=== PATIENT | male | born 1935 | race Caucasian/White ===

== ENCOUNTER 2016-08-03 12:48 | Outpatient (CLI) | payer MEDICARE, BC | END 2016-08-03 12:49 | disposition home or self-care (01) | DX: I48.91 Unspecified atrial fibrillation (principal); Z79.891 Long term (current) use of opiate analgesic; Z79.01 Long term (current) use of anticoagulants ==

== ENCOUNTER 2016-08-31 12:39 | Outpatient (CLI) | payer MEDICARE, BC | END 2016-08-31 12:40 | disposition home or self-care (01) | DX: I48.91 Unspecified atrial fibrillation (principal); Z79.891 Long term (current) use of opiate analgesic; Z79.01 Long term (current) use of anticoagulants ==

== ENCOUNTER 2016-09-15 08:13 | Outpatient (CLI) | payer MEDICARE, BC | END 2016-09-15 08:14 | disposition home or self-care (01) | DX: I48.91 Unspecified atrial fibrillation (principal); Z79.891 Long term (current) use of opiate analgesic; Z79.01 Long term (current) use of anticoagulants ==

== ENCOUNTER 2016-10-12 09:00 | Outpatient (CLI) | payer MEDICARE, BC | END 2016-10-12 09:01 | disposition home or self-care (01) | DX: I48.91 Unspecified atrial fibrillation (principal); Z79.01 Long term (current) use of anticoagulants; Z79.891 Long term (current) use of opiate analgesic ==

== ENCOUNTER 2016-11-09 08:00 | Outpatient (CLI) | payer MEDICARE, BC | END 2016-11-09 08:01 | disposition home or self-care (01) | DX: I48.91 Unspecified atrial fibrillation (principal); Z79.891 Long term (current) use of opiate analgesic; Z79.01 Long term (current) use of anticoagulants ==

== ENCOUNTER 2016-12-07 13:51 | Outpatient (CLI) | payer MEDICARE, BC | END 2016-12-07 13:52 | disposition home or self-care (01) | LOC: LAB.F 13:51 | PROVIDERS: ATTEND Internal Medicine | DX: I48.91 Unspecified atrial fibrillation (principal); Z79.891 Long term (current) use of opiate analgesic; Z79.01 Long term (current) use of anticoagulants | CPT/HCPCS: 85610 ==

== ENCOUNTER 2016-12-28 13:27 | Outpatient (CLI) | payer MEDICARE, BC | END 2016-12-28 13:28 | disposition home or self-care (01) | LOC: LAB.F 13:27 | PROVIDERS: ATTEND Internal Medicine | DX: I48.91 Unspecified atrial fibrillation (principal); Z79.891 Long term (current) use of opiate analgesic; Z79.01 Long term (current) use of anticoagulants | CPT/HCPCS: 85610 ==

== ENCOUNTER 2017-01-25 13:19 | Outpatient (CLI) | payer MEDICARE, BC | END 2017-01-25 13:20 | disposition home or self-care (01) | LOC: LAB.F 13:19 | PROVIDERS: ATTEND Internal Medicine | DX: I48.91 Unspecified atrial fibrillation (principal) | CPT/HCPCS: 85610 ==

== ENCOUNTER 2017-02-22 13:11 | Outpatient (CLI) | payer MEDICARE, BC | END 2017-02-22 13:12 | disposition home or self-care (01) | LOC: LAB.F 13:11 | PROVIDERS: ATTEND Internal Medicine | DX: I48.91 Unspecified atrial fibrillation (principal); Z79.891 Long term (current) use of opiate analgesic; Z79.01 Long term (current) use of anticoagulants | CPT/HCPCS: 85610 ==

== ENCOUNTER 2017-03-22 13:10 | Outpatient (CLI) | payer MEDICARE, BC | END 2017-03-22 13:11 | disposition home or self-care (01) | LOC: LAB.F 13:10 | PROVIDERS: ATTEND Internal Medicine | DX: I48.91 Unspecified atrial fibrillation (principal); Z79.891 Long term (current) use of opiate analgesic; Z79.01 Long term (current) use of anticoagulants | CPT/HCPCS: 85610 ==

== ENCOUNTER 2017-04-19 10:59 | Outpatient (CLI) | payer MEDICARE, BC | END 2017-04-19 11:00 | disposition home or self-care (01) | LOC: LAB.F 10:59 | PROVIDERS: ATTEND Internal Medicine | DX: I48.91 Unspecified atrial fibrillation (principal); Z79.891 Long term (current) use of opiate analgesic; Z79.01 Long term (current) use of anticoagulants | CPT/HCPCS: 85610 ==

== ENCOUNTER 2017-06-15 15:37 | Outpatient (CLI) | payer MEDICARE, BC | END 2017-06-15 15:38 | disposition home or self-care (01) | LOC: LAB.F 15:37 | PROVIDERS: ATTEND Internal Medicine | DX: I48.91 Unspecified atrial fibrillation (principal); Z79.891 Long term (current) use of opiate analgesic; Z79.01 Long term (current) use of anticoagulants | CPT/HCPCS: 85610 ==

== ENCOUNTER 2017-07-20 13:02 | Outpatient (CLI) | payer MEDICARE, BC | END 2017-07-20 13:03 | disposition home or self-care (01) | LOC: LAB.F 13:02 | PROVIDERS: ATTEND Internal Medicine | DX: I48.91 Unspecified atrial fibrillation (principal); Z79.891 Long term (current) use of opiate analgesic; Z79.01 Long term (current) use of anticoagulants | CPT/HCPCS: 85610 ==

== ENCOUNTER 2017-08-22 12:38 | Outpatient (CLI) | payer MEDICARE, BC | END 2017-08-22 12:39 | disposition home or self-care (01) | LOC: LAB.F 12:38 | PROVIDERS: ATTEND Internal Medicine | DX: I48.91 Unspecified atrial fibrillation (principal); Z79.891 Long term (current) use of opiate analgesic; Z79.01 Long term (current) use of anticoagulants | CPT/HCPCS: 85610 ==

== ENCOUNTER 2017-09-19 09:04 | Outpatient (CLI) | payer MEDICARE, BC | END 2017-09-19 09:05 | disposition home or self-care (01) | LOC: LAB.F 09:04 | PROVIDERS: ATTEND Internal Medicine | DX: I48.91 Unspecified atrial fibrillation (principal); Z79.891 Long term (current) use of opiate analgesic; Z79.01 Long term (current) use of anticoagulants | CPT/HCPCS: 85610 ==

== ENCOUNTER 2017-10-17 08:00 | Outpatient (CLI) | payer MEDICARE, BC | END 2017-10-17 08:01 | disposition home or self-care (01) | LOC: LAB.F 08:00 | DX: I48.2 Chronic atrial fibrillation (principal) | CPT/HCPCS: 85610 ==

== ENCOUNTER 2017-11-14 13:23 | Outpatient (CLI) | payer MEDICARE, BC | END 2017-11-14 13:24 | disposition home or self-care (01) | LOC: LAB.F 13:23 | PROVIDERS: ATTEND Nurse Practitioner Family | DX: Z51.81 Encounter for therapeutic drug level monitoring (principal); Z79.01 Long term (current) use of anticoagulants | CPT/HCPCS: 85610 ==

== ENCOUNTER 2017-12-15 09:54 | Outpatient (CLI) | payer MEDICARE, BC | END 2017-12-15 09:55 | disposition home or self-care (01) | LOC: LAB.F 09:54 | PROVIDERS: ATTEND Nurse Practitioner Family | DX: Z79.01 Long term (current) use of anticoagulants (principal) | CPT/HCPCS: 85610 ==

== ENCOUNTER 2018-01-12 12:42 | Outpatient (CLI) | payer MEDICARE, BC | END 2018-01-12 12:43 | disposition home or self-care (01) | LOC: LAB.F 12:42 | PROVIDERS: ATTEND Nurse Practitioner Family | DX: Z51.81 Encounter for therapeutic drug level monitoring (principal); Z79.01 Long term (current) use of anticoagulants | CPT/HCPCS: 85610 ==

== ENCOUNTER 2018-01-26 11:08 | Outpatient (CLI) | payer MEDICARE, BC | END 2018-01-26 11:09 | disposition home or self-care (01) | LOC: LAB.F 11:08 | PROVIDERS: ATTEND Nurse Practitioner Family | DX: Z51.81 Encounter for therapeutic drug level monitoring (principal); Z79.01 Long term (current) use of anticoagulants | CPT/HCPCS: 85610 ==

== ENCOUNTER 2018-02-20 13:45 | Outpatient (CLI) | payer MEDICARE, BC | END 2018-02-20 13:46 | disposition home or self-care (01) | LOC: LAB.F 13:45 | PROVIDERS: ATTEND Nurse Practitioner Family | DX: Z51.81 Encounter for therapeutic drug level monitoring (principal); Z79.01 Long term (current) use of anticoagulants | CPT/HCPCS: 85610 ==

== ENCOUNTER 2018-03-14 10:09 | Outpatient (CLI) | payer MEDICARE, BC | END 2018-03-14 10:10 | disposition home or self-care (01) | LOC: LAB.F 10:09 | PROVIDERS: ATTEND Nurse Practitioner Family | DX: Z51.81 Encounter for therapeutic drug level monitoring (principal); Z79.01 Long term (current) use of anticoagulants | CPT/HCPCS: 85610 ==

== ENCOUNTER 2018-04-12 14:04 | Outpatient (CLI) | payer MEDICARE, BC | END 2018-04-12 14:05 | disposition home or self-care (01) | LOC: LAB.F 14:04 | PROVIDERS: ATTEND Nurse Practitioner Family | DX: Z51.81 Encounter for therapeutic drug level monitoring (principal); Z79.01 Long term (current) use of anticoagulants | CPT/HCPCS: 85610 ==

== ENCOUNTER 2018-04-13 15:47 | Emergency (ER) | payer MEDICARE, BC ==
--- NOTE | 2018-04-13 16:42 | XRAY Report ---
Reason: pacer zapped him Procedure Date: 04/13/2018 Accession Number: [id number] / [id number] Procedure: XR - Chest 2 View X-Ray CPT Code: 40480 FULL RESULT: EXAM: CHEST RADIOGRAPHY EXAM DATE: 04/13/2018 04:15 PM. CLINICAL HISTORY: Pacer discharge. COMPARISON: None. TECHNIQUE: 2 views. FINDINGS: Lungs/Pleura: Patchy increased density in left lung base, atelectasis versus infiltrate. No consolidation, effusion, or pneumothorax. Mediastinum: Mild cardiomegaly. Upper lobe vessels not distended. Other: Indwelling defibrillator on the left with intact leads. Degenerative changes. IMPRESSION: Left basilar atelectasis versus infiltrate. RADIA
[2018-04-13 16:45] LABS: BASOPHILS # (AUTO) 0.1 10^3/uL (0.0-0.1); BASOPHILS % (AUTO) 1.3 %; EOSINOPHILS # (AUTO) 0.3 10^3/uL (0.0-0.7); EOSINOPHILS % (AUTO) 7.5 %; HGB - HEMOGLOBIN 14.2 g/dL (14.0-18.0); LYMPHOCYTES # (AUTO) 0.9 10^3/uL (1.5-3.5); LYMPHOCYTES % (AUTO) 19.5 %; MEAN CORPUSCULAR HEMOGLOBIN 33.6 pg (27.0-31.0); MEAN CORPUSCULAR HGB CONC 34.4 g/dL (32.0-36.0); MEAN CORPUSCULAR VOLUME 97.7 fL (80.0-94.0); MEAN PLATELET VOLUME 7.9 fL (7.4-11.4); MONOCYTES # (AUTO) 0.6 10^3/uL (0.0-1.0); NEUTROPHILS # (AUTO) 2.7 10^3/uL (1.5-6.6); NEUTROPHILS % (AUTO) 58.7 %; PLT - PLATELET COUNT 162 10^3/uL (130-450); RED BLOOD COUNT 4.23 10^6/uL (4.70-6.10); RED CELL DISTRIBUTION WIDTH 12.5 % (12.0-15.0); WHITE BLOOD COUNT 4.6 x10^3/uL (4.8-10.8)
--- NOTE | 2018-04-13 16:51 | ED Physician Documentation ---
PD HPI CHEST PAIN - Stated complaint Stated Complaint: DEFIB ALARM - Chief complaint Chief Complaint: Cardiac - History obtained from History obtained from: Patient - History of Present Illness Timing - onset: How many hours ago (1), Today Timing - onset during: Light activity (he was just walking at home and felt lightheaded briefly then his AICD fired. He felt lightheaded briefly just after and sat down. No LOC. He had some soreness in his chest. He improved to normal enroute to ER and feels okay here.) Timing - details: Abrupt onset (He says he had felt well earlier in the day without any dyspnea, lightheadedness, chest pain or other abnormalities. He did not have any feeling of palpitations. He was just walking in the kitchen when he abruptly felt some lightheadedness and then his AICD fired. He did not have any loss of consciousness. He subsequently felt back to normal several minutes later.), Now resolved Quality: Aching (after the AICD fired, but is feeling okay now.) Location: Left chest Improved by: Rest Worsened by: No: Exertion, Inspiration Associated symptoms: No: Shortness of air, Diaphoresis Similar symptoms before: Diagnosis (has had AICD fire couple of times in the past, last one about 8 years ago.) Recently seen: Surgery (he had routine replacement of AICD for battery replacement 10 days ago and was healing well. No signs of infection.) Review of Systems Constitutional: denies: Fever, Chills, Myalgias Nose: denies: Rhinorrhea / runny nose, Congestion Throat: denies: Sore throat Cardiac: reports: Chest pain / pressure (only after the AICD fired. He felt okay prior.). denies: Palpitations, Pedal edema, Calf pain Respiratory: denies: Dyspnea, Cough, Wheezing GI: denies: Abdominal Pain, Nausea, Vomiting, Diarrhea Musculoskeletal: denies: Extremity swelling Neurologic: denies: Focal weakness, Numbness, Near syncope, Confused, Altered mental status, Headache PD PAST MEDICAL HISTORY - Past Medical History Cardiovascular: Coronary artery disease, Atrial fibrillation - Past Surgical History Cardiovascular: Pacemaker, AICD - Present Medications Home Medications: Ambulatory Orders Medication Instructions Recorded Confirmed Digoxin 01/30/14 01/30/14 Losartan Potassium 01/30/14 01/30/14 Magnesium Oxide [Mag Ox] 01/30/14 01/30/14 Metoprolol Tartrate 01/30/14 01/30/14 Pantoprazole Sodium 01/30/14 01/30/14 Sotalol [Betapace] 01/30/14 01/30/14 Spironolactone 01/30/14 01/30/14 Warfarin [Coumadin] 01/30/14 01/30/14 - Allergies Allergies/Adverse Reactions: Allergies Allergy/AdvReac Type Severity Reaction Status Date / Time No Known Drug Allergies Allergy Verified 04/13/18 16:01 - Social History Does the pt smoke?: No Smoking Status: Never smoker Does the pt drink ETOH?: Yes Does the pt have substance abuse?: No PD ED PE NORMAL - Vitals Vital signs reviewed: Yes - General General: Alert and oriented X 3, No acute distress, Well developed/nourished - HEENT HEENT: Pharynx benign - Neck Neck: Supple, no meningeal sign, No adenopathy - Cardiac Cardiac: RRR, No murmur, Strong equal pulses, Other (chest wall with healing wound left upper chest. No signs of infection. ) - Respiratory Respiratory: Clear bilaterally - Abdomen Abdomen: Normal bowel sounds, Soft, Non tender - Back Back: No CVA TTP - Derm Derm: Normal color, Warm and dry - Extremities Extremities: No deformity, No tenderness to palpate, Normal ROM s pain, No edema, No calf tenderness / cord - Neuro Neuro: Alert and oriented X 3, No motor deficit, Normal speech - Psych Psych: Normal mood, Normal affect Results - Vitals Vitals: Vital Signs - 24 hr 04/13/18 04/13/18 15:50 18:01 Temperature 36.2 C L Heart Rate 67 70 Respiratory 20 16 Rate Blood Pressure 113/95 H 135/78 H O2 Saturation 96 98 Oxygen O2 Source Room air - EKG (time done) 15:57 Rate: Rate (enter#) (70) Rhythm: Paced [place]: Normal Intervals: No: Wide QRS Ischemia: Normal ST segments, Non specific changes. No: ST elevation c/w ischemia - Labs Labs: Laboratory Tests 04/13/18 04/13/18 04/13/18 16:37 16:37 16:37 WBC 4.6 L RBC 4.23 L Hgb 14.2 Hct 41.3 L MCV 97.7 H MCH 33.6 H MCHC 34.4 RDW 12.5 Plt Count 162 MPV 7.9 Neut # (Auto) 2.7 Lymph # (Auto) 0.9 L [place] # (Auto) 0.6 Eos # (Auto) 0.3 Baso # (Auto) 0.1 Absolute Nucleated RBC 0.00 Nucleated RBC % 0.1 Sodium 136 Potassium 4.3 Chloride 103 Carbon Dioxide 28 Anion Gap 5.0 L BUN 20 Creatinine 0.9 Estimated GFR (MDRD) 81 L Glucose 134 H Calcium 9.0 Total Bilirubin 1.1 H AST 23 ALT 26 Alkaline Phosphatase 52 Troponin I < 0.04 Total Protein 7.3 Albumin 4.0 Globulin 3.3 Albumin/Globulin Ratio 1.2 Lipase 40 Last Dose Date Last Dose Time Digoxin 04/13/18 16:37 WBC RBC Hgb Hct MCV MCH MCHC RDW Plt Count MPV Neut # (Auto) Lymph # (Auto) [place] # (Auto) Eos # (Auto) Baso # (Auto) Absolute Nucleated RBC Nucleated RBC % Sodium Potassium Chloride Carbon Dioxide Anion Gap BUN Creatinine Estimated GFR (MDRD) Glucose Calcium Total Bilirubin AST ALT Alkaline Phosphatase Troponin I Total Protein Albumin Globulin Albumin/Globulin Ratio Lipase Last Dose Date UNK Last Dose Time UNK Digoxin 0.6 PD MEDICAL DECISION MAKING - ED course Complexity details: considered differential, d/w patient, d/w sales support consultant (Dr. Self, personnel arbitrator for Dr. Cohen, who said okay for patient to go home, if feeling back to normal. ) - Sepsis Event Vital Signs: Vital Signs - 24 hr 04/13/18 04/13/18 15:50 18:01 Temperature 36.2 C L Heart Rate 67 70 Respiratory 20 16 Rate Blood Pressure 113/95 H 135/78 H O2 Saturation 96 98 Oxygen O2 Source Room air Departure - Departure Disposition: Home, Self Care Clinical Impression: Defibrillator discharge Condition: Stable Record reviewed to determine appropriate education?: Yes Follow-Up: Rika Cohen MD [Physician No Access] - Comments: Continue usual medications. I talked with Dr. Self who is on-call for cardiology. He said it is reasonable for you to go home and do normal activity. Contact Dr. Stubbs's office next week. If you have a repeat discharge of the AICD, then return to the ER. Discharge Date/Time: 04/13/18 18:02
[2018-04-13 16:57] LABS: ALBUMIN/GLOBULIN RATIO 1.2 (1.0-2.2); BILIRUBIN,TOTAL 1.1 mg/dL (0.2-1.0); CREATININE 0.9 mg/dL (0.6-1.2); TOTAL PROTEIN 7.3 g/dL (6.7-8.2)
[2018-04-13 17:20] LABS: DIGOXIN 0.6 ng/mL
[2018-04-13 18:02] VITALS: BP 135/78
== END 2018-04-13 18:02 | disposition home or self-care (01) ==
LOC: ED 15:47
DX: T82.198A Other mechanical complication of other cardiac electronic device, initial encounter (principal); I48.91 Unspecified atrial fibrillation; I48.92 Unspecified atrial flutter; I25.10 Atherosclerotic heart disease of native coronary artery without angina pectoris; Z79.01 Long term (current) use of anticoagulants
CPT/HCPCS: 36415; 71046; 80053; 80162; 83690; 84484; 85025; 93005; 99283; 99284

== ENCOUNTER 2018-05-03 14:15 | Outpatient (CLI) | payer MEDICARE, BC | END 2018-05-03 14:16 | disposition home or self-care (01) | LOC: LAB.F 14:15 | PROVIDERS: ATTEND Family Medicine Sports Medicine | DX: Z51.81 Encounter for therapeutic drug level monitoring (principal); Z79.01 Long term (current) use of anticoagulants | CPT/HCPCS: 85610 ==

== ENCOUNTER 2018-05-09 13:05 | Outpatient (CLI) | payer MEDICARE, BC | END 2018-05-09 13:06 | disposition home or self-care (01) | LOC: LAB.F 13:05 | PROVIDERS: ATTEND Nurse Practitioner Family | DX: Z51.81 Encounter for therapeutic drug level monitoring (principal); Z79.01 Long term (current) use of anticoagulants | CPT/HCPCS: 85610 ==

== ENCOUNTER 2018-06-08 14:50 | Outpatient (CLI) | payer MEDICARE, BC | END 2018-06-08 14:51 | disposition home or self-care (01) | LOC: LAB.F 14:50 | PROVIDERS: ATTEND Nurse Practitioner Family | DX: Z51.81 Encounter for therapeutic drug level monitoring (principal); Z79.01 Long term (current) use of anticoagulants | CPT/HCPCS: 85610 ==

== ENCOUNTER 2018-06-27 15:08 | Outpatient (CLI) | payer MEDICARE, BC | END 2018-06-27 15:09 | disposition home or self-care (01) | LOC: LAB.F 15:08 | PROVIDERS: ATTEND Nurse Practitioner Family | DX: Z51.81 Encounter for therapeutic drug level monitoring (principal); Z79.01 Long term (current) use of anticoagulants | CPT/HCPCS: 85610 ==

== ENCOUNTER 2018-07-25 14:14 | Outpatient (CLI) | payer MEDICARE, BC | END 2018-07-25 14:15 | disposition home or self-care (01) | LOC: LAB.F 14:14 | PROVIDERS: ATTEND Nurse Practitioner Family | DX: Z51.81 Encounter for therapeutic drug level monitoring (principal); Z79.01 Long term (current) use of anticoagulants | CPT/HCPCS: 85610 ==

== ENCOUNTER 2018-08-22 11:09 | Outpatient (CLI) | payer MEDICARE, BC | END 2018-08-22 11:10 | disposition home or self-care (01) | LOC: LAB.F 11:09 | PROVIDERS: ATTEND Nurse Practitioner Family | DX: Z51.81 Encounter for therapeutic drug level monitoring (principal); Z79.01 Long term (current) use of anticoagulants | CPT/HCPCS: 85610 ==

== ENCOUNTER 2018-09-05 09:14 | Outpatient (CLI) | payer MEDICARE, BC | END 2018-09-05 09:15 | disposition home or self-care (01) | LOC: LAB.F 09:14 | PROVIDERS: ATTEND Nurse Practitioner Family | DX: Z51.81 Encounter for therapeutic drug level monitoring (principal); Z79.01 Long term (current) use of anticoagulants | CPT/HCPCS: 85610 ==

== ENCOUNTER 2018-10-04 13:13 | Outpatient (CLI) | payer MEDICARE, BC | END 2018-10-04 13:14 | disposition home or self-care (01) | LOC: LAB.F 13:13 | PROVIDERS: ATTEND Nurse Practitioner Family | DX: Z51.81 Encounter for therapeutic drug level monitoring (principal); Z79.01 Long term (current) use of anticoagulants | CPT/HCPCS: 85610 ==

== ENCOUNTER 2018-10-25 13:38 | Outpatient (CLI) | payer MEDICARE, BC | END 2018-10-25 13:39 | disposition home or self-care (01) | LOC: LAB.F 13:38 | PROVIDERS: ATTEND Family Medicine Sports Medicine | DX: Z51.81 Encounter for therapeutic drug level monitoring (principal); Z79.01 Long term (current) use of anticoagulants | CPT/HCPCS: 85610 ==

== ENCOUNTER 2018-11-08 13:25 | Outpatient (CLI) | payer MEDICARE, BC | END 2018-11-08 13:26 | disposition home or self-care (01) | LOC: LAB.F 13:25 | PROVIDERS: ATTEND Family Medicine Sports Medicine | DX: Z51.81 Encounter for therapeutic drug level monitoring (principal); Z79.01 Long term (current) use of anticoagulants | CPT/HCPCS: 85610 ==

== ENCOUNTER 2018-11-18 20:07 | Outpatient (CLI) | payer MEDICARE, BC | END 2018-11-18 20:08 | disposition short-term general hospital (02) | LOC: EMS 20:07 | PROVIDERS: ATTEND Surgery | DX: R42 Dizziness and giddiness (principal); Z95.810 Presence of automatic (implantable) cardiac defibrillator | CPT/HCPCS: A0425; A0427 ==

== ENCOUNTER 2018-11-22 12:34 | Outpatient (CLI) | payer MEDICARE, BC | END 2018-11-22 12:35 | disposition home or self-care (01) | LOC: LAB.F 12:34 | PROVIDERS: ATTEND Family Medicine Sports Medicine | DX: Z51.81 Encounter for therapeutic drug level monitoring (principal); Z79.01 Long term (current) use of anticoagulants | CPT/HCPCS: 85610 ==

== ENCOUNTER 2018-11-29 15:11 | Outpatient (CLI) | payer MEDICARE, BC | END 2018-11-29 15:12 | disposition home or self-care (01) | LOC: LAB.F 15:11 | PROVIDERS: ATTEND Family Medicine Sports Medicine | DX: Z51.81 Encounter for therapeutic drug level monitoring (principal); Z79.01 Long term (current) use of anticoagulants | CPT/HCPCS: 85610 ==

== ENCOUNTER 2018-12-11 15:25 | Outpatient (CLI) | payer MEDICARE, BC | END 2018-12-11 15:26 | disposition home or self-care (01) | LOC: LAB.F 15:25 | PROVIDERS: ATTEND Family Medicine Sports Medicine | DX: Z51.81 Encounter for therapeutic drug level monitoring (principal); Z79.01 Long term (current) use of anticoagulants | CPT/HCPCS: 36415; 85610 ==

== ENCOUNTER 2018-12-13 10:03 | Outpatient (CLI) | payer MEDICARE, BC | END 2018-12-13 10:04 | disposition home or self-care (01) | LOC: LAB.F 10:03 | PROVIDERS: ATTEND Family Medicine Sports Medicine | DX: Z51.81 Encounter for therapeutic drug level monitoring (principal); Z79.01 Long term (current) use of anticoagulants | CPT/HCPCS: 85610 ==

== ENCOUNTER 2018-12-27 14:27 | Outpatient (CLI) | payer MEDICARE, BC | END 2018-12-27 14:28 | disposition home or self-care (01) | LOC: LAB.F 14:27 | PROVIDERS: ATTEND Family Medicine Sports Medicine | DX: Z51.81 Encounter for therapeutic drug level monitoring (principal); Z79.01 Long term (current) use of anticoagulants | CPT/HCPCS: 85610 ==

== ENCOUNTER 2019-01-01 14:14 | Outpatient (CLI) | payer MEDICARE, BC | END 2019-01-01 14:15 | disposition home or self-care (01) | LOC: LAB.F 14:14 | PROVIDERS: ATTEND Family Medicine Sports Medicine | DX: Z51.81 Encounter for therapeutic drug level monitoring (principal); Z79.01 Long term (current) use of anticoagulants | CPT/HCPCS: 85610 ==

== ENCOUNTER 2019-01-08 10:08 | Outpatient (CLI) | payer MEDICARE, BC | END 2019-01-08 10:09 | disposition home or self-care (01) | LOC: LAB.F 10:08 | PROVIDERS: ATTEND Family Medicine Sports Medicine | DX: Z51.81 Encounter for therapeutic drug level monitoring (principal); Z79.01 Long term (current) use of anticoagulants | CPT/HCPCS: 85610 ==

== ENCOUNTER 2019-01-22 09:59 | Outpatient (CLI) | payer MEDICARE, BC | END 2019-01-22 10:00 | disposition home or self-care (01) | LOC: LAB.S 09:59 | PROVIDERS: ATTEND Family Medicine Sports Medicine | DX: Z51.81 Encounter for therapeutic drug level monitoring (principal); Z79.01 Long term (current) use of anticoagulants | CPT/HCPCS: 85610 ==

== ENCOUNTER 2019-02-12 12:52 | Outpatient (CLI) | payer MEDICARE, BC | END 2019-02-12 12:53 | disposition home or self-care (01) | LOC: LAB.S 12:52 | PROVIDERS: ATTEND Family Medicine Sports Medicine | DX: Z51.81 Encounter for therapeutic drug level monitoring (principal); Z79.01 Long term (current) use of anticoagulants | CPT/HCPCS: 85610 ==

== ENCOUNTER 2019-02-21 10:36 | Outpatient (CLI) | payer MEDICARE, BC | END 2019-02-21 10:37 | disposition home or self-care (01) | LOC: LAB.S 10:36 | PROVIDERS: ATTEND Family Medicine Sports Medicine | DX: Z51.81 Encounter for therapeutic drug level monitoring (principal); Z79.01 Long term (current) use of anticoagulants | CPT/HCPCS: 85610 ==

== ENCOUNTER 2019-03-07 10:09 | Outpatient (CLI) | payer MEDICARE, BC | END 2019-03-07 10:10 | disposition home or self-care (01) | LOC: LAB.S 10:09 | PROVIDERS: ATTEND Family Medicine Sports Medicine | DX: Z51.81 Encounter for therapeutic drug level monitoring (principal); Z79.01 Long term (current) use of anticoagulants | CPT/HCPCS: 85610 ==

== ENCOUNTER 2019-03-21 10:27 | Outpatient (CLI) | payer MEDICARE, BC | END 2019-03-21 10:28 | disposition home or self-care (01) | LOC: LAB.S 10:27 | PROVIDERS: ATTEND Family Medicine Sports Medicine | DX: Z51.81 Encounter for therapeutic drug level monitoring (principal); Z79.01 Long term (current) use of anticoagulants | CPT/HCPCS: 85610 ==

== ENCOUNTER 2019-04-04 14:45 | Outpatient (CLI) | payer MEDICARE, BC | END 2019-04-04 14:46 | disposition home or self-care (01) | LOC: LAB.S 14:45 | PROVIDERS: ATTEND Family Medicine Sports Medicine | DX: Z51.81 Encounter for therapeutic drug level monitoring (principal); Z79.01 Long term (current) use of anticoagulants | CPT/HCPCS: 85610 ==

== ENCOUNTER 2019-04-18 11:37 | Outpatient (CLI) | payer MEDICARE, BC | END 2019-04-18 11:38 | disposition home or self-care (01) | LOC: LAB.S 11:37 | PROVIDERS: ATTEND Family Medicine Sports Medicine | DX: Z51.81 Encounter for therapeutic drug level monitoring (principal); Z79.01 Long term (current) use of anticoagulants | CPT/HCPCS: 85610 ==

== ENCOUNTER 2019-05-23 12:12 | Outpatient (CLI) | payer MEDICARE, BC | END 2019-05-23 23:59 | disposition home or self-care (01) | LOC: LAB.S 12:12 | PROVIDERS: ATTEND Family Medicine Sports Medicine | DX: Z51.81 Encounter for therapeutic drug level monitoring (principal); Z79.01 Long term (current) use of anticoagulants | CPT/HCPCS: 85610 ==

== ENCOUNTER 2019-06-21 15:31 | Outpatient (CLI) | payer MEDICARE, BC | END 2019-06-21 15:32 | disposition home or self-care (01) | LOC: LAB.S 15:31 | PROVIDERS: ATTEND Family Medicine | DX: I48.20 Chronic atrial fibrillation, unspecified (principal) | CPT/HCPCS: 85610 ==

== ENCOUNTER 2019-07-08 12:42 | Outpatient (CLI) | payer MEDICARE, BC | END 2019-07-08 12:43 | disposition home or self-care (01) | LOC: LAB.S 12:42 | PROVIDERS: ATTEND Family Medicine | DX: I48.20 Chronic atrial fibrillation, unspecified (principal) | CPT/HCPCS: 85610 ==

== ENCOUNTER 2019-07-29 13:31 | Outpatient (CLI) | payer MEDICARE, BC | END 2019-07-29 13:32 | disposition home or self-care (01) | LOC: LAB.S 13:31 | PROVIDERS: ATTEND Family Medicine | DX: I48.20 Chronic atrial fibrillation, unspecified (principal) | CPT/HCPCS: 85610 ==

== ENCOUNTER 2019-08-20 13:24 | Outpatient (CLI) | payer MEDICARE, BC | END 2019-08-20 13:25 | disposition home or self-care (01) | LOC: LAB.S 13:24 | PROVIDERS: ATTEND Family Medicine | DX: I48.20 Chronic atrial fibrillation, unspecified (principal) | CPT/HCPCS: 85610 ==

== ENCOUNTER 2019-08-29 15:13 | Outpatient (CLI) | payer MEDICARE, BC | END 2019-08-29 15:14 | disposition home or self-care (01) | LOC: LAB.S 15:13 | PROVIDERS: ATTEND Family Medicine | DX: I48.20 Chronic atrial fibrillation, unspecified (principal) | CPT/HCPCS: 85610 ==

== ENCOUNTER 2019-09-09 11:36 | Outpatient (CLI) | payer MEDICARE, BC | END 2019-09-09 11:37 | disposition home or self-care (01) | LOC: LAB.S 11:36 | PROVIDERS: ATTEND Family Medicine | DX: I48.20 Chronic atrial fibrillation, unspecified (principal) | CPT/HCPCS: 85610 ==

== ENCOUNTER 2019-09-23 13:28 | Outpatient (CLI) | payer MEDICARE, BC | END 2019-09-23 13:29 | disposition home or self-care (01) | LOC: LAB.S 13:28 | PROVIDERS: ATTEND Family Medicine | DX: I48.20 Chronic atrial fibrillation, unspecified (principal) | CPT/HCPCS: 85610 ==

== ENCOUNTER 2019-10-07 13:11 | Outpatient (CLI) | payer MEDICARE, BC | END 2019-10-07 13:12 | disposition home or self-care (01) | LOC: LAB.S 13:11 | PROVIDERS: ATTEND Family Medicine | DX: I48.20 Chronic atrial fibrillation, unspecified (principal) | CPT/HCPCS: 85610 ==

== ENCOUNTER 2019-10-08 08:00 | Outpatient (CLI) | payer MEDICARE, BC ==
[2019-10-08 17:25] LABS: ALBUMIN 3.9 g/dL (3.2-5.5); BILIRUBIN,DIRECT 0.2 mg/dL (0.1-0.5); BILIRUBIN,TOTAL 1.2 mg/dL (0.2-1.0); TOTAL PROTEIN 6.9 g/dL (6.7-8.2)
== END 2019-10-08 23:59 | disposition home or self-care (01) ==
LOC: LAB.S 08:00
PROVIDERS: ATTEND Internal Medicine Cardiovascular Disease
DX: Z79.899 Other long term (current) drug therapy (principal)
CPT/HCPCS: 36415; 80076

== ENCOUNTER 2019-10-16 14:38 | Outpatient (CLI) | payer MEDICARE, BC | END 2019-10-16 14:39 | disposition home or self-care (01) | LOC: LAB 14:38 | PROVIDERS: ATTEND Internal Medicine Cardiovascular Disease | DX: Z79.899 Other long term (current) drug therapy (principal); E03.2 Hypothyroidism due to medicaments and other exogenous substances | CPT/HCPCS: 36415; 84443 ==

== ENCOUNTER 2019-11-04 10:56 | Outpatient (CLI) | payer MEDICARE, BC | END 2019-11-04 10:57 | disposition home or self-care (01) | LOC: LAB 10:56 | PROVIDERS: ATTEND Family Medicine | DX: I48.20 Chronic atrial fibrillation, unspecified (principal) | CPT/HCPCS: 85610 ==

== ENCOUNTER 2019-11-05 11:58 | Outpatient (CLI) | payer MEDICARE, BC | END 2019-11-05 11:59 | disposition home or self-care (01) | LOC: LAB 11:58 | PROVIDERS: ATTEND Family Medicine | DX: I48.20 Chronic atrial fibrillation, unspecified (principal) | CPT/HCPCS: 85610 ==

== ENCOUNTER 2019-11-11 12:10 | Outpatient (CLI) | payer MEDICARE, BC | END 2019-11-11 12:11 | disposition home or self-care (01) | LOC: LAB 12:10 | PROVIDERS: ATTEND Family Medicine | DX: I48.20 Chronic atrial fibrillation, unspecified (principal) | CPT/HCPCS: 85610 ==

== ENCOUNTER 2019-11-18 10:07 | Outpatient (CLI) | payer MEDICARE, BC | END 2019-11-18 10:08 | disposition home or self-care (01) | LOC: LAB 10:07 | PROVIDERS: ATTEND Family Medicine | DX: I48.20 Chronic atrial fibrillation, unspecified (principal) | CPT/HCPCS: 85610 ==

== ENCOUNTER 2019-11-25 10:39 | Outpatient (CLI) | payer MEDICARE, BC | END 2019-11-25 10:40 | disposition home or self-care (01) | LOC: LAB 10:39 | PROVIDERS: ATTEND Family Medicine | DX: I48.20 Chronic atrial fibrillation, unspecified (principal) | CPT/HCPCS: 85610 ==

== ENCOUNTER 2019-12-02 11:36 | Outpatient (CLI) | payer MEDICARE, BC | END 2019-12-02 11:37 | disposition home or self-care (01) | LOC: LAB 11:36 | PROVIDERS: ATTEND Family Medicine | DX: I48.20 Chronic atrial fibrillation, unspecified (principal) | CPT/HCPCS: 85610 ==

== ENCOUNTER 2019-12-11 12:42 | Outpatient (CLI) | payer MEDICARE, BC | END 2019-12-11 12:43 | disposition home or self-care (01) | LOC: LAB 12:42 | PROVIDERS: ATTEND Family Medicine | DX: I48.20 Chronic atrial fibrillation, unspecified (principal) | CPT/HCPCS: 85610 ==

== ENCOUNTER 2019-12-31 11:26 | Outpatient (CLI) | payer MEDICARE, BC | END 2019-12-31 11:27 | disposition home or self-care (01) | LOC: LAB 11:26 | PROVIDERS: ATTEND Family Medicine | DX: I48.20 Chronic atrial fibrillation, unspecified (principal) | CPT/HCPCS: 85610 ==

== ENCOUNTER 2020-01-15 13:10 | Outpatient (CLI) | payer MEDICARE, BC | END 2020-01-15 13:11 | disposition home or self-care (01) | LOC: LAB.S 13:10 | PROVIDERS: ATTEND Family Medicine | DX: I48.20 Chronic atrial fibrillation, unspecified (principal) | CPT/HCPCS: 85610 ==

== ENCOUNTER 2020-02-05 12:46 | Outpatient (CLI) | payer MEDICARE, BC | END 2020-02-05 12:47 | disposition home or self-care (01) | LOC: LAB.S 12:46 | PROVIDERS: ATTEND Family Medicine | DX: I48.20 Chronic atrial fibrillation, unspecified (principal) | CPT/HCPCS: 85610 ==

== ENCOUNTER 2020-03-04 11:32 | Outpatient (CLI) | payer MEDICARE, BC | END 2020-03-04 11:33 | disposition home or self-care (01) | LOC: LAB.S 11:32 | PROVIDERS: ATTEND Family Medicine | DX: I48.20 Chronic atrial fibrillation, unspecified (principal) | CPT/HCPCS: 85610 ==

== ENCOUNTER 2020-04-01 13:17 | Outpatient (CLI) | payer MEDICARE, BC | END 2020-04-01 13:18 | disposition home or self-care (01) | LOC: LAB.S 13:17 | PROVIDERS: ATTEND Family Medicine | DX: I48.20 Chronic atrial fibrillation, unspecified (principal) | CPT/HCPCS: 85610 ==

== ENCOUNTER 2020-04-23 11:48 | Outpatient (CLI) | payer MEDICARE, BC | END 2020-04-23 11:49 | disposition home or self-care (01) | LOC: LAB.S 11:48 | PROVIDERS: ATTEND Family Medicine | DX: I48.20 Chronic atrial fibrillation, unspecified (principal) | CPT/HCPCS: 85610 ==

== ENCOUNTER 2020-04-30 13:16 | Outpatient (CLI) | payer MEDICARE, BC | END 2020-04-30 13:17 | disposition home or self-care (01) | LOC: LAB.S 13:16 | PROVIDERS: ATTEND Family Medicine | DX: I48.20 Chronic atrial fibrillation, unspecified (principal) | CPT/HCPCS: 85610 ==

== ENCOUNTER 2020-05-07 13:54 | Outpatient (CLI) | payer MEDICARE, BC | END 2020-05-07 13:55 | disposition home or self-care (01) | LOC: LAB.S 13:54 | PROVIDERS: ATTEND Family Medicine | DX: I48.20 Chronic atrial fibrillation, unspecified (principal) | CPT/HCPCS: 85610 ==

== ENCOUNTER 2020-05-14 13:26 | Outpatient (CLI) | payer MEDICARE, BC | END 2020-05-14 13:27 | disposition home or self-care (01) | LOC: LAB.S 13:26 | PROVIDERS: ATTEND Family Medicine | DX: I48.20 Chronic atrial fibrillation, unspecified (principal) | CPT/HCPCS: 85610 ==

== ENCOUNTER 2020-05-21 14:00 | Outpatient (CLI) | payer MEDICARE, BC | END 2020-05-21 14:01 | disposition home or self-care (01) | LOC: LAB.S 14:00 | PROVIDERS: ATTEND Family Medicine | DX: I48.20 Chronic atrial fibrillation, unspecified (principal) | CPT/HCPCS: 85610 ==

== ENCOUNTER 2020-05-25 15:07 | Outpatient (CLI) | payer MEDICARE, BC | END 2020-05-25 15:08 | disposition home or self-care (01) | LOC: LAB.S 15:07 | PROVIDERS: ATTEND Family Medicine | DX: I48.20 Chronic atrial fibrillation, unspecified (principal) | CPT/HCPCS: 85610 ==

== ENCOUNTER 2020-06-04 14:58 | Outpatient (CLI) | payer MEDICARE, BC | END 2020-06-04 14:59 | disposition home or self-care (01) | LOC: LAB.S 14:58 | PROVIDERS: ATTEND Family Medicine | DX: I48.20 Chronic atrial fibrillation, unspecified (principal) | CPT/HCPCS: 85610 ==

== ENCOUNTER 2020-06-18 13:53 | Outpatient (CLI) | payer MEDICARE, BC | END 2020-06-18 13:54 | disposition home or self-care (01) | LOC: LAB.S 13:53 | PROVIDERS: ATTEND Family Medicine | DX: I48.20 Chronic atrial fibrillation, unspecified (principal) | CPT/HCPCS: 85610 ==

== ENCOUNTER 2020-06-25 14:17 | Outpatient (CLI) | payer MEDICARE, BC | END 2020-06-25 14:18 | disposition home or self-care (01) | LOC: LAB.S 14:17 | PROVIDERS: ATTEND Family Medicine | DX: I48.20 Chronic atrial fibrillation, unspecified (principal) | CPT/HCPCS: 85610 ==

== ENCOUNTER 2020-07-02 12:39 | Outpatient (CLI) | payer MEDICARE, BC | END 2020-07-02 12:40 | disposition home or self-care (01) | LOC: LAB.S 12:39 | PROVIDERS: ATTEND Family Medicine | DX: I48.20 Chronic atrial fibrillation, unspecified (principal) | CPT/HCPCS: 85610 ==

== ENCOUNTER 2020-07-08 12:27 | Outpatient (CLI) | payer MEDICARE, BC | END 2020-07-08 12:28 | disposition home or self-care (01) | LOC: LAB.S 12:27 | PROVIDERS: ATTEND Family Medicine | DX: I48.20 Chronic atrial fibrillation, unspecified (principal) | CPT/HCPCS: 85610 ==

== ENCOUNTER 2020-07-15 13:03 | Outpatient (CLI) | payer MEDICARE, BC | END 2020-07-15 13:04 | disposition home or self-care (01) | LOC: LAB.S 13:03 | PROVIDERS: ATTEND Family Medicine | DX: I48.20 Chronic atrial fibrillation, unspecified (principal) | CPT/HCPCS: 85610 ==

== ENCOUNTER 2020-07-23 14:00 | Outpatient (CLI) | payer MEDICARE, BC | END 2020-07-23 14:01 | disposition home or self-care (01) | LOC: LAB.S 14:00 | PROVIDERS: ATTEND Family Medicine | DX: I48.20 Chronic atrial fibrillation, unspecified (principal) | CPT/HCPCS: 85610 ==

== ENCOUNTER 2020-08-03 12:17 | Outpatient (CLI) | payer MEDICARE, BC | END 2020-08-03 12:18 | disposition home or self-care (01) | LOC: LAB.S 12:17 | PROVIDERS: ATTEND Family Medicine | DX: I48.20 Chronic atrial fibrillation, unspecified (principal) | CPT/HCPCS: 85610 ==

== ENCOUNTER 2020-08-10 12:57 | Outpatient (CLI) | payer MEDICARE, BC | END 2020-08-10 12:58 | disposition home or self-care (01) | LOC: LAB.S 12:57 | PROVIDERS: ATTEND Family Medicine | DX: I48.20 Chronic atrial fibrillation, unspecified (principal) | CPT/HCPCS: 85610 ==

== ENCOUNTER 2020-08-24 12:41 | Outpatient (CLI) | payer MEDICARE, BC | END 2020-08-24 12:42 | disposition home or self-care (01) | LOC: LAB.S 12:41 | PROVIDERS: ATTEND Family Medicine | DX: I48.20 Chronic atrial fibrillation, unspecified (principal) | CPT/HCPCS: 85610 ==

== ENCOUNTER 2020-09-07 11:07 | Outpatient (CLI) | payer MEDICARE, BC | END 2020-09-07 11:08 | disposition home or self-care (01) | LOC: LAB.S 11:07 | PROVIDERS: ATTEND Family Medicine | DX: I48.20 Chronic atrial fibrillation, unspecified (principal) | CPT/HCPCS: 85610 ==

== ENCOUNTER 2020-09-14 12:56 | Outpatient (CLI) | payer MEDICARE, BC | END 2020-09-14 12:57 | disposition home or self-care (01) | LOC: LAB.S 12:56 | PROVIDERS: ATTEND Family Medicine | DX: I48.20 Chronic atrial fibrillation, unspecified (principal) | CPT/HCPCS: 85610 ==

== ENCOUNTER 2020-09-21 13:04 | Outpatient (CLI) | payer MEDICARE, BC | END 2020-09-21 13:05 | disposition home or self-care (01) | LOC: LAB 13:04 | PROVIDERS: ATTEND Family Medicine | DX: I48.20 Chronic atrial fibrillation, unspecified (principal) | CPT/HCPCS: 85610 ==

== ENCOUNTER 2020-10-05 14:20 | Outpatient (CLI) | payer MEDICARE, BC | END 2020-10-05 14:21 | disposition home or self-care (01) | LOC: LAB.S 14:20 | PROVIDERS: ATTEND Family Medicine | DX: I48.20 Chronic atrial fibrillation, unspecified (principal) | CPT/HCPCS: 85610 ==

== ENCOUNTER 2020-10-27 12:57 | Outpatient (CLI) | payer MEDICARE, BC | END 2020-10-27 12:58 | disposition home or self-care (01) | LOC: LAB.S 12:57 | PROVIDERS: ATTEND Family Medicine | DX: I48.20 Chronic atrial fibrillation, unspecified (principal) | CPT/HCPCS: 85610 ==

== ENCOUNTER 2020-11-10 10:53 | Outpatient (CLI) | payer MEDICARE, BC | END 2020-11-10 10:54 | disposition home or self-care (01) | LOC: LAB.S 10:53 | PROVIDERS: ATTEND Family Medicine | DX: I48.20 Chronic atrial fibrillation, unspecified (principal) | CPT/HCPCS: 85610 ==

== ENCOUNTER 2020-12-10 13:05 | Outpatient (CLI) | payer MEDICARE, BC | END 2020-12-10 13:06 | disposition home or self-care (01) | LOC: LAB.S 13:05 | PROVIDERS: ATTEND Family Medicine | DX: I48.20 Chronic atrial fibrillation, unspecified (principal) | CPT/HCPCS: 36416; 85610 ==

== ENCOUNTER 2021-01-22 12:18 | Outpatient (CLI) | payer MEDICARE, BC | END 2021-01-22 12:19 | disposition home or self-care (01) | LOC: LAB.S 12:18 | PROVIDERS: ATTEND Family Medicine | DX: I48.20 Chronic atrial fibrillation, unspecified (principal) | CPT/HCPCS: 36416; 85610 ==

== ENCOUNTER 2021-02-12 12:40 | Outpatient (CLI) | payer MEDICARE, BC | END 2021-02-12 12:41 | disposition home or self-care (01) | LOC: LAB.S 12:40 | PROVIDERS: ATTEND Family Medicine | DX: I48.20 Chronic atrial fibrillation, unspecified (principal) | CPT/HCPCS: 36416; 85610 ==

== ENCOUNTER 2021-03-15 11:20 | Outpatient (CLI) | payer MEDICARE, BC | END 2021-03-15 11:21 | disposition home or self-care (01) | LOC: LAB.S 11:20 | PROVIDERS: ATTEND Family Medicine | DX: I48.20 Chronic atrial fibrillation, unspecified (principal) | CPT/HCPCS: 36416; 85610 ==

== ENCOUNTER 2021-04-12 13:48 | Outpatient (CLI) | payer MEDICARE, BC | END 2021-04-12 13:49 | disposition home or self-care (01) | LOC: LAB.S 13:48 | PROVIDERS: ATTEND Family Medicine | DX: I48.20 Chronic atrial fibrillation, unspecified (principal) | CPT/HCPCS: 36416; 85610 ==

== ENCOUNTER 2021-05-10 13:59 | Outpatient (CLI) | payer MEDICARE, BC | END 2021-05-10 14:00 | disposition home or self-care (01) | LOC: LAB.S 13:59 | PROVIDERS: ATTEND Family Medicine | DX: I48.20 Chronic atrial fibrillation, unspecified (principal) | CPT/HCPCS: 36416; 85610 ==

== ENCOUNTER 2021-06-07 15:16 | Outpatient (CLI) | payer MEDICARE, BC | END 2021-06-07 15:17 | disposition home or self-care (01) | LOC: LAB.S 15:16 | PROVIDERS: ATTEND Family Medicine | DX: I48.20 Chronic atrial fibrillation, unspecified (principal) | CPT/HCPCS: 36416; 85610 ==

== ENCOUNTER 2021-07-05 11:23 | Outpatient (CLI) | payer MEDICARE, BC | END 2021-07-05 11:24 | disposition home or self-care (01) | LOC: LAB.S 11:23 | PROVIDERS: ATTEND Family Medicine | DX: I48.20 Chronic atrial fibrillation, unspecified (principal) | CPT/HCPCS: 36416; 85610 ==

== ENCOUNTER 2021-09-01 16:01 | Outpatient (CLI) | payer MEDICARE, BC | END 2021-09-01 16:02 | disposition home or self-care (01) | LOC: LAB.S 16:01 | PROVIDERS: ATTEND Family Medicine | DX: I48.20 Chronic atrial fibrillation, unspecified (principal) | CPT/HCPCS: 36416; 85610 ==

== ENCOUNTER 2021-09-30 14:48 | Outpatient (CLI) | payer MEDICARE, BC | END 2021-09-30 14:49 | disposition home or self-care (01) | LOC: LAB.S 14:48 | PROVIDERS: ATTEND Family Medicine | DX: I48.20 Chronic atrial fibrillation, unspecified (principal) | CPT/HCPCS: 36416; 85610 ==

== ENCOUNTER 2021-11-05 11:43 | Outpatient (CLI) | payer MEDICARE, BC | END 2021-11-05 11:44 | disposition home or self-care (01) | LOC: LAB.S 11:43 | PROVIDERS: ATTEND Family Medicine | DX: I48.20 Chronic atrial fibrillation, unspecified (principal) | CPT/HCPCS: 36416; 85610 ==

== ENCOUNTER 2021-11-15 12:03 | Outpatient (CLI) | payer MEDICARE, BC | END 2021-11-15 12:04 | disposition home or self-care (01) | LOC: LAB.S 12:03 | PROVIDERS: ATTEND Family Medicine | DX: I48.20 Chronic atrial fibrillation, unspecified (principal) | CPT/HCPCS: 36416; 85610 ==

== ENCOUNTER 2021-11-23 10:20 | Outpatient (CLI) | payer MEDICARE, BC ==
[2021-11-23 14:42] LABS: ALBUMIN 3.4 g/dL (3.2-5.5); CALCIUM 9.1 mg/dL (8.5-10.3); CREATININE 1.1 mg/dL (0.6-1.2); PHOSPHORUS 3.6 mg/dL (2.5-4.6); POTASSIUM 4.3 mmol/L (3.5-5.0)
== END 2021-11-23 10:21 | disposition home or self-care (01) ==
LOC: LAB.S 10:20
PROVIDERS: ATTEND Internal Medicine Cardiovascular Disease
DX: I50.21 Acute systolic (congestive) heart failure (principal)
CPT/HCPCS: 36415; 80069

== ENCOUNTER 2021-12-09 09:23 | Outpatient (CLI) | payer MEDICARE, BC | END 2021-12-09 09:24 | disposition critical access hospital (66) | LOC: EMS 09:23 | DX: S09.90XA Unspecified injury of head, initial encounter (principal); R11.0 Nausea; R51.9 Headache, unspecified; R42 Dizziness and giddiness; H53.8 Other visual disturbances; W06.XXXA Fall from bed, initial encounter; Y92.003 Bedroom of unspecified non-institutional (private) residence as the place of occurrence of the external cause; Z79.01 Long term (current) use of anticoagulants | CPT/HCPCS: A0425; A0427 ==

== ENCOUNTER 2021-12-09 09:48 | Observation (INO) | payer MEDICARE, BC ==
--- NOTE | 2021-12-09 09:56 | ED Physician Documentation ---
PD HPI HEAD INJURY - Stated complaint Stated Complaint: GLF - Additional information Additional information: Patient is an 86-year-old male presenting to the emergency department as modified trauma with head injury on Coumadin. Was found down by application lead in his bathroom. Believes that he passed out approximately 30 minutes prior to being found. States has been feeling acutely lightheaded and dizzy at home. On Coumadin for A. fib. Also has history cardiomyopathy with pacer placement. Currently reports that he still feels lightheaded.Denies any chest pain, palpitations, shortness of breath, abdominal pain. Review of Systems Ten Systems: 10 systems reviewed and negative Cardiac: denies: Chest pain / pressure Respiratory: denies: Dyspnea GI: denies: Abdominal Pain : denies: Dysuria Musculoskeletal: denies: Neck pain Neurologic: reports: Syncope PD PAST MEDICAL HISTORY - Past Medical History Cardiovascular: Coronary artery disease, Atrial fibrillation - Past Surgical History Past Surgical History: Yes Cardiovascular: Pacemaker, AICD - Present Medications Home Medications: Ambulatory Orders Medication Instructions Recorded Confirmed Magnesium Oxide [Mag Ox] 400 mg PO BID 01/30/14 12/09/21 Pantoprazole Sodium 40 mg PO ONCE 01/30/14 12/09/21 Sotalol [Betapace] 120 mg PO BID 01/30/14 12/09/21 Warfarin [Coumadin] 2.5 - 5 mg PO DAILY 01/30/14 12/09/21 Fexofenadine [Valorie] 60 mg PO BID 12/09/21 12/09/21 Furosemide [Lasix] 1.5 tab PO DAILY 12/09/21 12/09/21 Levothyroxine [Synthroid] 125 mcg PO QDAC 12/09/21 12/09/21 Metoprolol Succinate 0.5 tab PO DAILY 12/09/21 12/09/21 Potassium Chloride [Klor-Con 10] 10 meq PO DAILY 12/09/21 12/09/21 Pravastatin [Pravachol] 40 mg PO DAILY PM 12/09/21 12/09/21 Sacubitril/Valsartan [Entresto 24 0.5 tab PO BID 12/09/21 12/09/21 mg-26 mg Tablet] Vit C/E/Zn/Coppr/Lutein/Zeaxan 1 each PO DAILY 12/09/21 12/09/21 [Preservision Areds 2 Chew Tab] - Allergies Allergies/Adverse Reactions: Allergies Allergy/AdvReac Type Severity Reaction Status Date / Time No Known Drug Allergies Allergy Verified 04/13/18 16:01 - Social History Does the pt smoke?: No Smoking Status: Never smoker Does the pt drink ETOH?: Yes Does the pt have substance abuse?: No - Immunizations Immunizations are current?: Yes - POLST Patient has POLST: Yes PD ED PE NORMAL - Vitals Vital signs reviewed: Yes - General General: Alert and oriented X 3, No acute distress - HEENT HEENT: No: Atraumatic (3 cm x 3 cm hematoma on the posterior occiput) - Neck Neck: Supple, no meningeal sign, C-Spine cleared by NEXUS criteria - Cardiac Cardiac: RRR, No gallop - Respiratory Respiratory: No respiratory distress, Clear bilaterally - Abdomen Abdomen: Normal bowel sounds, Soft, Non tender - Male Male : Deferred - Rectal Rectal: Deferred - Back Back: No CVA TTP - Derm Derm: Normal color - Extremities Extremities: No deformity, No tenderness to palpate, No edema, No calf tenderness / cord - Neuro Neuro: Alert and oriented X 3, players club representative 2-12 intact, No motor deficit, No sensory deficit, Normal speech - Psych Psych: Normal mood Results - Vitals Vitals: Vital Signs - 24 hr 12/09/21 12/09/21 12/09/21 09:56 10:30 11:55 Heart Rate 74 83 53 L Respiratory 14 16 19 Rate Blood Pressure 95/78 102/67 95/65 O2 Saturation 97 97 98 12/09/21 12/09/21 12/09/21 12:00 12:30 13:00 Heart Rate 51 L 65 84 Respiratory 18 17 19 Rate Blood Pressure 107/68 117/71 95/65 O2 Saturation 97 96 95 12/09/21 12/09/21 12/09/21 13:30 14:00 14:30 Heart Rate 69 79 83 Respiratory 20 19 20 Rate Blood Pressure 95/63 100/63 O2 Saturation 96 94 94 12/09/21 12/09/21 12/09/21 15:00 15:30 16:00 Heart Rate 87 78 85 Respiratory 19 19 19 Rate Blood Pressure 100/67 93/46 L 106/94 H O2 Saturation 97 97 99 12/09/21 16:30 Heart Rate 84 Respiratory 21 Rate Blood Pressure 96/59 L O2 Saturation 98 Oxygen O2 Source Room air - EKG (time done) 1023 Rate: Rate (enter#) (91) Rhythm: Paced [place]: LAD Intervals: Normal RI, Prolonged QT, LBBB Other comments: Other comments (Left ventricular hypertrophy, frequent polymorphic premature ventricular complexes.) Compare to prior EKG: Changed from prior EKG (Current EKG replaces a flutter noted on 04/13/2018. No previous EKGs available.) - Labs Labs: Laboratory Tests 12/09/21 12/09/21 12/09/21 09:55 09:55 09:55 WBC 5.2 RBC 4.15 L Hgb 13.9 L Hct 41.8 L MCV 100.7 H MCH 33.5 H MCHC 33.3 RDW 12.7 Plt Count 147 MPV 10.2 Neut # (Auto) 3.2 Lymph # (Auto) 0.9 L [place] # (Auto) 0.6 Eos # (Auto) 0.4 Baso # (Auto) 0.1 Absolute Nucleated RBC 0.00 Nucleated RBC % 0.0 PT 28.0 H INR 2.5 H Sodium 142 Potassium 4.0 Chloride 105 Carbon Dioxide 26 Anion Gap 11.0 BUN 30 H Creatinine 1.3 H Estimated GFR (MDRD) 52 L Glucose 149 H Calcium 9.2 Magnesium Total Bilirubin 1.4 H AST 23 ALT 23 Alkaline Phosphatase 49 Troponin I High Sens Total Protein 7.1 Albumin 3.6 Globulin 3.5 Albumin/Globulin Ratio 1.0 Lipase 46 TSH SARS-CoV-2 (PCR) 12/09/21 12/09/21 12/09/21 09:55 09:55 09:55 WBC RBC Hgb Hct MCV MCH MCHC RDW Plt Count MPV Neut # (Auto) Lymph # (Auto) [place] # (Auto) Eos # (Auto) Baso # (Auto) Absolute Nucleated RBC Nucleated RBC % PT INR Sodium Potassium Chloride Carbon Dioxide Anion Gap BUN Creatinine Estimated GFR (MDRD) Glucose Calcium Magnesium 2.1 Total Bilirubin AST ALT Alkaline Phosphatase Troponin I High Sens 9.4 Total Protein Albumin Globulin Albumin/Globulin Ratio Lipase TSH 0.43 SARS-CoV-2 (PCR) 12/09/21 12:11 WBC RBC Hgb Hct MCV MCH MCHC RDW Plt Count MPV Neut # (Auto) Lymph # (Auto) [place] # (Auto) Eos # (Auto) Baso # (Auto) Absolute Nucleated RBC Nucleated RBC % PT INR Sodium Potassium Chloride Carbon Dioxide Anion Gap BUN Creatinine Estimated GFR (MDRD) Glucose Calcium Magnesium Total Bilirubin AST ALT Alkaline Phosphatase Troponin I High Sens Total Protein Albumin Globulin Albumin/Globulin Ratio Lipase TSH SARS-CoV-2 (PCR) NOT DETECTED PD MEDICAL DECISION MAKING - ED course Complexity details: reviewed old records, reviewed results, re-evaluated patient, considered differential, d/w patient, d/w family, d/w market intelligence consultant ED course: Patient is 86-year-old male with past medical significant for A. fib on Coumadin with AICD presenting to the emergency department after syncopal episode at home. He was found down at home with indications of head injury. Physical exam did demonstrate a modestly sized hematoma on the back of his scalp. Additionally he reported ongoing episodes of dizziness and states that he has been having them since his fall. Initial EKG was concerning for frequent premature ventricular complexes as well as an extended QTC at 630 however it otherwise demonstrated a paced rhythm with indications of ventricular hypertrophy unchanged from previous. Comprehensive labs were obtained here in the emergency department which were all within normal limits or nonactionable. Of note patient had normal serum magnesium. I did have his pacer interrogated here in the emergency department and it indicated an episode of ventricular tachycardia and shock was delivered at 750 this morning. I discussed his case with the on-call sewer at [facility] who his recommendation was for increasing his beta-blockade and careful monitoring. They do not believe that transfer to [facility] was necessary at this time. Patient's care was further discussed with our hospitalist service who graciously agreed to accept the patient. He will be hospitalized here for further evaluation and treatment. Departure - Departure Disposition: ED Place in Observation Discharge Date/Time: 12/09/21 18:00
[2021-12-09 10:00] LABS: BASOPHILS # (AUTO) 0.1 10^3/uL (0.0-0.1); EOSINOPHILS # (AUTO) 0.4 10^3/uL (0.0-0.7); HCT - HEMATOCRIT 41.8 % (42.0-52.0); HGB - HEMOGLOBIN 13.9 g/dL (14.0-18.0); LYMPHOCYTES # (AUTO) 0.9 10^3/uL (1.5-3.5); LYMPHOCYTES % (AUTO) 16.7 %; MEAN CORPUSCULAR HEMOGLOBIN 33.5 pg (27.0-31.0); MEAN CORPUSCULAR HGB CONC 33.3 g/dL (32.0-36.0); MEAN CORPUSCULAR VOLUME 100.7 fL (80.0-94.0); MEAN PLATELET VOLUME 10.2 fL (7.4-11.4); MONOCYTES # (AUTO) 0.6 10^3/uL (0.0-1.0); MONOCYTES % (AUTO) 10.7 %; NEUTROPHILS # (AUTO) 3.2 10^3/uL (1.5-6.6); NEUTROPHILS % (AUTO) 62.8 %; PLT - PLATELET COUNT 147 10^3/uL (130-450); RED BLOOD COUNT 4.15 10^6/uL (4.70-6.10); RED CELL DISTRIBUTION WIDTH 12.7 % (12.0-15.0); WHITE BLOOD COUNT 5.2 x10^3/uL (4.8-10.8)
--- NOTE | 2021-12-09 10:13 | CT Report ---
PROCEDURE: HEAD WO INDICATIONS: Head injury on coumadin TECHNIQUE: Noncontrast 4.5 mm thick angled axial sections acquired from the foramen magnum to the vertex. For r adiation dose reduction, the following was used: automated exposure control, adjustment of mA and/or kV according to patient size. COMPARISON: 01/30/2014. FINDINGS: Image quality: Excellent. CSF spaces: Basal cisterns are patent. No extra-axial fluid collections. The ventricles are symmet chester in size and shape. Brain: No intracranial bleeds or masses. There is cerebral volume loss for age, with resultant vent ricular and sulcal prominence. There are periventricular and deep white matter chronic small vessel ischemic changes. There is intracranial internal carotid artery atherosclerosis. Skull and face: Calvarium and visualized facial bones appear intact, without suspicious lesions. Lar ge right parietal-temporal scalp hematoma. Sinuses: Visualized sinuses and mastoids are clear. IMPRESSION: No acute intracranial disease process. Reviewed by: Yolis Frost MD, PhD on 12/09/2021 10:12 AM PDT Approved by: Yolis Frost MD, PhD on 12/09/2021 10:12 AM PDT Station ID: [id number]
[2021-12-09 10:14] LABS: INR 2.5 (0.8-1.2)
[2021-12-09 10:16] LABS: ALBUMIN 3.6 g/dL (3.2-5.5); BILIRUBIN,TOTAL 1.4 mg/dL (0.2-1.0); CALCIUM 9.2 mg/dL (8.5-10.3); CREATININE 1.3 mg/dL (0.6-1.2); TOTAL PROTEIN 7.1 g/dL (6.7-8.2)
[2021-12-09] MEDS ORDERED: ONDANSETRON ODT 4 MG TABLET TL PRN (16:45)
[2021-12-09] MEDS ORDERED: oxyCODONE 5 MG TABLET PO PRN (16:45)
[2021-12-09] MEDS ORDERED: SODIUM CHLORIDE FLUSH 0.9% 10 ML SYRINGE IVP PRN (16:45)
[2021-12-09] MEDS ORDERED: ACETAMINOPHEN 325 MG TABLET PO PRN (16:45)
[2021-12-09] MEDS ORDERED: ONDANSETRON 4 MG/2 ML VIAL IVP PRN (16:45)
--- NOTE | 2021-12-09 17:22 | HISTORY & PHYSICAL EXAMINATION ---
Chief Complaint - Chief Complaint Chief Complaint: syncope History of Present Illness - Admitted From Admitted From:: ER - History Obtained From Records Reviewed: [facility], ER notes History obtained from: pt Exam Limitations: no - History of Present Illness HPI Comment/Other: This is an 86-year-old male with a past medical history significant noted for Hypertension, HLD, CAD with pacer/ICD, A fibrillation with Coumadin, hypothyroidism, who presenting to the emergency department to complain of syncope. Pt's is at the bedside to help presentation of medical history. She report pt came back from bathroom and tried to brush his teeth. Pt felt lightheaded and fall in the floor. Pt did not remember what happened. Pt report he might lay at floor for 20-30 minutes. he report he hit his head and right elbow in the ground. he report he maybe had his ICD discharged but he was not very sure. CT of head reveal unremarkable for acute process. Pt move his left hand without pain. Pt report he had pace/ICD for about 8 yrs, batter will last for another two yrs. Pt report he frequently feel lightheaded and dizziness at home. He report His charcoal unloader Dr. Cohen at [facility] frequently switch his home medication metoprolol and sotalol with dosage to try control of his symptoms. He denies any chest pain, palpitations, shortness of breath. Troponin is 9.4. EKG reveals ventricular-pacer complexes with prolonged QT interval at 513. In ER, pt is afebrile, blood pressure 95/78, HR 74, 97% O2 sat on room air. Given above patient's medical conditions, patient is admitted in observation unit. Discussed the care goal with the patient, patient clearly stated he is a DNR/DNI History - Past Medical History Cardiovascular: reports: Coronary artery disease, Atrial fibrillation - Past Surgical History Cardiovascular: reports: Pacemaker, AICD - Family & Social History Family History: Mother: , Father: Family History Comment/Other: Report his father at the age 68 from heart failure. His mother at age 88 with medical history of Parkinson disease. Social History Notes: Patient report he quit cigarette smoking in the age of 39, he drinks 2 and 1/2 glasses of alcohol daily - POLST Patient has POLST: Yes Meds/Allgy - Home Medications Home Medications: Ambulatory Orders Medication Instructions Recorded Confirmed Magnesium Oxide [Mag Ox] 400 mg PO BID 07/17/14 05/26/22 Pantoprazole Sodium 40 mg PO ONCE 01/30/14 12/09/21 Sotalol [Betapace] 120 mg PO BID 01/30/14 12/09/21 Warfarin [Coumadin] 2.5 - 5 mg PO DAILY 01/30/14 12/09/21 Fexofenadine [Valorie] 60 mg PO BID 12/09/21 12/09/21 Furosemide [Lasix] 1.5 tab PO DAILY 12/09/21 12/09/21 Levothyroxine [Synthroid] 125 mcg PO QDAC 12/09/21 12/09/21 Potassium Chloride [Klor-Con 10] 10 meq PO DAILY 12/09/21 12/09/21 Pravastatin [Pravachol] 40 mg PO DAILY PM 12/09/21 12/09/21 Sacubitril/Valsartan [Entresto 24 0.5 tab PO BID 12/09/21 12/09/21 mg-26 mg Tablet] Vit C/E/Zn/Coppr/Lutein/Zeaxan 1 each PO DAILY 12/09/21 12/09/21 [Preservision Areds 2 Chew Tab] - Allergies Allergies/Adverse Reactions: Allergies Allergy/AdvReac Type Severity Reaction Status Date / Time No Known Drug Allergies Allergy Verified 04/13/18 16:01 Review of Systems - Constitutional Constitutional: denies: Fever, Chills - Eyes Eyes: denies: Pain - Cardiovascular Cariovascular: reports: Lightheadedness. denies: Palpitations, Chest pain, Exertional dyspnea, Decr. exercise tolerance - Respiratory Respiratory: denies: Cough, SOB at rest, SOB with exertion - Gastrointestinal Gastrointestinal: denies: Abdominal pain, Nausea, Vomiting - Musculoskeletal Musculoskeletal: denies: Back pain - Neurological Neurological: reports: Dizziness. denies: General weakness, Focal weakness, Headache, Numbness, Seizures, Incoordination, Slurred speech Prior Level of Functionality: independently walk at home Exam - Vital Signs Vital Signs: Vital Signs x48h Pulse Resp BP Pulse Ox 12/09/21 17:00 86 20 92/62 98 12/09/21 16:30 84 21 96/59 L 98 12/09/21 16:00 85 19 106/94 H 99 12/09/21 15:30 78 19 93/46 L 97 12/09/21 15:00 87 19 100/67 97 12/09/21 14:30 83 20 100/63 94 12/09/21 14:00 79 19 95/63 94 12/09/21 13:30 69 20 96 12/09/21 13:00 84 19 95/65 95 12/09/21 12:30 65 17 117/71 96 12/09/21 12:00 51 L 18 107/68 97 12/09/21 11:55 53 L 19 95/65 98 12/09/21 10:30 83 16 102/67 97 12/09/21 09:56 74 14 95/78 97 - Physical Exam General Appearance: positive: No acute distress, Alert. negative: Lethargic Eyes Bilateral: positive: Normal inspection, No lid inflammation ENT: positive: ENT inspection nml. negative: Purulent nasal drainage Neck: positive: Nml inspection, Trachea midline. negative: Tracheal deviation Respiratory: positive: Chest non-tender, No respiratory distress, Breath sounds nml. negative: Wheezes Cardiovascular: positive: Regular rate & rhythm. negative: Tachycardia, Bradycardia, Systolic murmur Peripheral Pulses: positive: 2+ Abdomen: positive: Non-tender, Nml bowel sounds, No distention. negative: Tenderness Back: positive: Nml inspection Skin: positive: Color nml, Warm, Dry. negative: Cyanosis Extremities: positive: Non-tender, Full ROM, Nml appearance Neurologic/Psychiatric: positive: Oriented x3, Sensation nml. negative: Weakness, Sensory loss, Facial droop, Slurred/abnml speech, Depressed mood/ affect Conclusion/Plan - Problem List (1) Syncope Conclusion/Plan: pt report he had syncope and fall at home bathroom. he report he lost his Consciousness at the time. Pacemaker monitor at ER did find pt had ICD discharg ed. pt report he did not remember clearly if ICD discharged and shocked. Troponin is 9.1. we will have tele monitor pt, we might have ECHO study for pt, resume pt's home meds Sotalol. pt's EKG reveal slight long QT and cause for high dosage of Sotalol. resume pt's home metoprolol. We may discuss with pt's charcoal unloader for next care plan if ICD continue discharged (2) Defibrillator discharge Conclusion/Plan: pt likely had his ICD discharged at home. we will put pt on tele monitor, check ECHO if we can have on tomorrow. we will resume pt's home medication Sotalol and metoprolol. we may add IV amadonele if pt continue to have ICD discharged and contact with pt's charcoal unloader for next care plan. (3) Afib Conclusion/Plan: HR is stable, resume home medication Sotalol and metoprolol, add tele monitor. INR is 2.5, resume his home Coumadin and continue check PT/INR. (4) KENDRICK (acute kidney injury) Conclusion/Plan: creatinine is 1.3 on today, his baseline is 1.1, gentle IVF and lab monitor. (5) HTN (hypertension) Conclusion/Plan: pt's BP is soft now, will hold his home BP meds now, continue vital monitor. (6) Hypothyroidism Conclusion/Plan: TSH is normal, resume home synthroid. - Lab Results Fish Bones: 12/09/21 09:55 12/09/21 09:55 Core Measures - Anticipated LOS I expect patient to be DC'd or transferred within 96 hours.: Yes - DVT/VTE - Prophylaxis VTE/DVT Device ordered at admit?: Yes VTE/DVT Prophylaxis med ordered at admit?: Yes
[2021-12-09] MEDS ORDERED: PANTOPRAZOLE 40 MG TABLET PO SCH (18:00)
[2021-12-09] MEDS: SODIUM CHLORIDE 0.9% 1,000 ML IV SCH (18:29)
[2021-12-09] MEDS: THIAMINE 100 MG TABLET PO SCH (18:36)
[2021-12-09] MEDS: SOTALOL 80 MG TABLET PO SCH (21:00)
[2021-12-09] MEDS ORDERED: SOTALOL 80 MG TABLET PO SCH ×2 (21:00)
[2021-12-09] MEDS ORDERED: PRAVASTATIN 40 MG TABLET PO SCH (21:00)
[2021-12-09] MEDS: MAGNESIUM OXIDE 400 MG TABLET PO SCH (21:00)
[2021-12-10] MEDS: SODIUM CHLORIDE 0.9% 1,000 ML IV SCH (04:32)
[2021-12-10 05:49] LABS: BASOPHILS % (AUTO) 0.7 %; EOSINOPHILS # (AUTO) 0.2 10^3/uL (0.0-0.7); HCT - HEMATOCRIT 38.1 % (42.0-52.0); HGB - HEMOGLOBIN 12.7 g/dL (14.0-18.0); LYMPHOCYTES # (AUTO) 1.4 10^3/uL (1.5-3.5); LYMPHOCYTES % (AUTO) 25.3 %; MEAN CORPUSCULAR HEMOGLOBIN 33.1 pg (27.0-31.0); MEAN CORPUSCULAR HGB CONC 33.3 g/dL (32.0-36.0); MEAN CORPUSCULAR VOLUME 99.2 fL (80.0-94.0); MEAN PLATELET VOLUME 10.5 fL (7.4-11.4); MONOCYTES # (AUTO) 0.8 10^3/uL (0.0-1.0); NEUTROPHILS % (AUTO) 54.6 %; PLT - PLATELET COUNT 134 10^3/uL (130-450); RED BLOOD COUNT 3.84 10^6/uL (4.70-6.10); RED CELL DISTRIBUTION WIDTH 12.8 % (12.0-15.0); WHITE BLOOD COUNT 5.5 x10^3/uL (4.8-10.8)
[2021-12-10 05:55] LABS: CALCIUM 8.8 mg/dL (8.5-10.3); CREATININE 1.2 mg/dL (0.6-1.2); POTASSIUM 4.1 mmol/L (3.5-5.0)
[2021-12-10 06:10] LABS: INR 2.2 (0.8-1.2); PT - PROTHROMBIN TIME 24.4 secs (9.9-12.6)
[2021-12-10] MEDS ORDERED: PANTOPRAZOLE 40 MG TABLET PO SCH (07:00)
[2021-12-10] MEDS ORDERED: LEVOTHYROXINE 125 MCG TABLET PO SCH (07:00)
[2021-12-10] MEDS ORDERED: PRENATAL VITAMIN TABLET PO SCH (08:00)
[2021-12-10] MEDS: MAGNESIUM OXIDE 400 MG TABLET PO SCH (08:32)
[2021-12-10] MEDS: THIAMINE 100 MG TABLET PO SCH (08:32)
[2021-12-10] MEDS: SODIUM CHLORIDE FLUSH 0.9% 10 ML SYRINGE IVP SCH ×2 (08:32)
--- NOTE | 2021-12-10 08:40 | Discharge Plan ---
Discharge Plan Problem Reviewed?: Yes Disposition: Home, Self Care Condition: Fair Prescriptions: Sotalol [Betapace] 160 mg PO BID #60 tablet Diet: Low Sodium Activity Restrictions: Activity as Tolerated Shower Restrictions: No Driving Restrictions: No Health Concerns: You presented to our emergency room because you had passed out and had no recollection of it. You have a history of a low heart pump function that is resulted in congestive heart failure as well as a pacer/AICD. The AICD is supposed to go off when you have a malignant heart arrhythmia because of your congestive heart failure. We interrogated your pacer in the emergency room and found that you had gone into ventricular tachycardia which is a very dangerous heart rhythm and that your AICD delivered a shock to your heart muscle to get you out of the ventricular tachycardia. You are still complaining of dizziness and fatigue. Dr. Cohen asked us to place you in observation and increase your propafenone in order to suppress some of the extra heartbeats your heart was doing. We did so and overnight you had no more arrhythmias. However, you continue to have a low blood pressure in the 90s. And you get dizzy and lightheaded when you stand. We think your blood pressure may be low due to the congestive heart failure and your entresto. You are on the lowest dose of Entresto you can be on. I do not think I can prescribe a lower dose pill. I think the Entresto may be giving you too low of a blood pressure. I am asking you to stop it until you see Dr. Cohen again. Plan of Treatment: 1. Stop your Entresto until you see your director of services 2. Your director of services is asked us to increase your propafenone from 120 mg twice a day to 160 mg twice a day and that was done. A new prescription has been called into community pharmacy. 3. Make sure you stay on a low-salt diet. Care Goals: To control your symptoms so you do not feel so lightheaded and tired. And to be monitored carefully for your arrhythmias. Assessment: Patient says he understands the plan and promises to follow through No Smoking: If you smoke, Please STOP! Call for help. Follow-up with: ARIELA FARMER MD [Primary Care Provider] -
--- NOTE | 2021-12-10 08:53 | DISCHARGE SUMMARY ---
"Discharge Summary Admit Date: 12/09/21 Discharge Date: 12/10/21 Discharging Provider: Neha Pierre MD Primary Care Provider: Kirk Vasquez MD Code Status: Do Not Attempt Resuscitation Condition at Discharge: Fair Discharge Disposition: 01 Home, Self Care - DIAGNOSES Discharge Diagnoses with Status of Each Condition: 1. Syncope 2. Defibrillator discharge 3. Ventricular tachycardia 4. Heart failure with reduced ejection fraction 5. Chronic atrial fibrillation 6. Acute kidney injury 7. Hypertension 8. Hypothyroidism - HPI History of Present Illness: This is an 86-year-old male with a past medical history significant noted for Hypertension, HLD, CAD with pacer/ICD, A fibrillation with Coumadin, hypothyroidism, who presenting to the emergency department to complain of syncope. Pt's is at the bedside to help presentation of medical history. She report pt came back from bathroom and tried to brush his teeth. Pt felt lightheaded and fall in the floor. Pt did not remember what happened. Pt report he might lay at floor for 20-30 minutes. he report he hit his head and right elbow in the ground. he report he maybe had his ICD discharged but he was not very sure. CT of head reveal unremarkable for acute process. Pt move his left hand without pain. Pt report he had pace/ICD for about 8 yrs, batter will last for another two yrs. Pt report he frequently feel lightheaded and dizziness at home. He report His rail operator Dr. Cohen at [facility] frequently switch his home medication metoprolol and sotalol with dosage to try control of his symptoms. He denies any chest pain, palpitations, shortness of breath. Troponin is 9.4. EKG reveals ventricular-pacer complexes with prolonged QT interval at 513. In ER, pt is afebrile, blood pressure 95/78, HR 74, 97% O2 sat on room air. Given above patient's medical conditions, patient is admitted in observation unit. Discussed the care goal with the patient, patient clearly stated he is a DNR/DNI - Past Medical History Cardiovascular: reports: Coronary artery disease, Atrial fibrillation - Past Surgical History Cardiovascular: reports: Pacemaker, AICD - CONSULTS | PROCEDURES Consultations: Phone consultation with his rail operator from [facility], Dr. Cohen Procedures: Head CT is without acute intracranial process - HOSPITAL COURSE Hospital Course: The patient's sotalol was increased from 120 mg p.o. twice daily 260 mg p.o. at the request of his rail operator. She was hoping to have suppression of his PVCs. Overnight telemetry reported there was no significant ectopy. No recurrence of V. tach. The patient's main complaint continues to be lightheadedness and dizziness especially with orthostatic change. Supine he is 91/57. Sitting he is 97/69. Standing he is 97/60. I asked him of his blood pressures been this low for a while since he carries a diagnosis of hypertension. He states that he has been in the low 100s to high 90s for some time now. His current Entresto dose is half a tablet of the tablet. I am not finding a smaller dose on the Entresto website. As such I think that the Entresto may be leading to hypotension in this gentleman. I have asked him to stop it until he sees his rail operator next week. In the meantime he stays on his sotalol 160 mg p.o. twice daily. In the same dose of Lasix. At discharge he is an alert, oriented slightly deaf elderly gentleman who looks his stated age and is wearing glasses. Temperature is 36.6. Heart rate is 66. Blood pressure 96/57. Respirations 18. He is 97% on 2 L nasal cannula. 94% on room air. Neck is supple he does not have any JVD. Lungs are clear. No respiratory distress. No pedal edema. Echocardiogram is pending at the time of discharge. It has been ordered and not done yet. - ALLERGIES Allergies/Adverse Reactions: Allergies Allergy/AdvReac Type Severity Reaction Status Date / Time No Known Drug Allergies Allergy Verified 04/13/18 16:01 - MEDICATIONS Home Medications: Ambulatory Orders Medication Instructions Recorded Confirmed Magnesium Oxide [Mag Ox] 400 mg PO BID 01/30/14 12/09/21 Pantoprazole Sodium 40 mg PO ONCE 01/30/14 12/09/21 Sotalol [Betapace] 120 mg PO BID 01/30/14 12/09/21 Warfarin [Coumadin] 2.5 - 5 mg PO DAILY 01/30/14 12/09/21 Fexofenadine [Valorie] 60 mg PO BID 12/09/21 12/09/21 Furosemide [Lasix] 1.5 tab PO DAILY 12/09/21 12/09/21 Levothyroxine [Synthroid] 125 mcg PO QDAC 12/09/21 12/09/21 Potassium Chloride [Klor-Con 10] 10 meq PO DAILY 12/09/21 12/09/21 Pravastatin [Pravachol] 40 mg PO DAILY PM 12/09/21 12/09/21 Vit C/E/Zn/Coppr/Lutein/Zeaxan 1 each PO DAILY 12/09/21 12/09/21 [Preservision Areds 2 Chew Tab] Sotalol [Betapace] 160 mg PO BID #60 tablet 12/10/21 Thiamine [Vitamin B-1] 100 mg PO DAILY tablet 12/10/21 - LABS Result Diagrams: 12/10/21 05:11 12/10/21 05:11"
[2021-12-10] MEDS ORDERED: METOPROLOL SUCCINATE 50 MG TABLET PO SCH (09:00)
[2021-12-10] MEDS: SOTALOL 80 MG TABLET PO SCH (09:54)
[2021-12-10 11:16] VITALS: BP 96/60
[2021-12-10] MEDS ORDERED: WARFARIN 5 MG TABLET PO SCH (14:00)
== END 2021-12-10 12:06 | disposition home or self-care (01) ==
LOC: EDUNIT# → ED 09:48 → MS2 16:45
PROVIDERS: ADMIT Nurse Practitioner Gerontology; ATTEND Specialist
DX: R55 Syncope and collapse (principal); S00.03XA Contusion of scalp, initial encounter; W18.30XA Fall on same level, unspecified, initial encounter; Y92.002 Bathroom of unspecified non-institutional (private) residence as the place of occurrence of the external cause; I48.91 Unspecified atrial fibrillation; Z79.01 Long term (current) use of anticoagulants; Z95.810 Presence of automatic (implantable) cardiac defibrillator; R42 Dizziness and giddiness; I47.2 Ventricular tachycardia; R00.2 Palpitations; Z20.822 Contact with and (suspected) exposure to COVID-19; N17.9 Acute kidney failure, unspecified; I11.0 Hypertensive heart disease with heart failure; I50.20 Unspecified systolic (congestive) heart failure; I48.20 Chronic atrial fibrillation, unspecified; E03.9 Hypothyroidism, unspecified; E78.5 Hyperlipidemia, unspecified; Z66 Do not resuscitate; I25.10 Atherosclerotic heart disease of native coronary artery without angina pectoris; Z87.891 Personal history of nicotine dependence
CPT/HCPCS: 36415; 70450; 80048; 80053; 83690; 83735; 84443; 84484; 85025; 85610; 87635; 93005; 96360; 96361; 99283; 99285; A9270; G0378

== ENCOUNTER 2021-12-14 10:23 | Outpatient (CLI) | payer MEDICARE, BC | END 2021-12-14 10:24 | disposition critical access hospital (66) | LOC: EMS 10:23 | DX: S00.93XA Contusion of unspecified part of head, initial encounter (principal); R55 Syncope and collapse; W19.XXXA Unspecified fall, initial encounter; Y93.01 Activity, walking, marching and hiking; Y92.002 Bathroom of unspecified non-institutional (private) residence as the place of occurrence of the external cause | CPT/HCPCS: A0425; A0429 ==

== ENCOUNTER 2021-12-14 10:49 | Emergency (ER) | payer MEDICARE, BC ==
[2021-12-14] MEDS ORDERED: SODIUM CHLORIDE 0.9% 1,000 ML IV STA (10:59)
--- NOTE | 2021-12-14 11:02 | ED Physician Documentation ---
History of Present Illness - Stated complaint Stated Complaint: FALL/SYNCOPE - Chief complaint Chief Complaint: Neuro - History obtained from History obtained from: Patient, EMS - Additonal information Additional information: The patient comes to the emergency department via EMS for chief complaint of ground-level fall at home. The patient does not really remember the events surrounding the fall. This apparently happened last week as well and patient does not remember what triggered that fall either. He has a history of A. fib and is on anticoagulation for this, though is not sure which medication. He states that mainly, he has a headache at the site of that hematoma he sustained last week on his posterior scalp. He attributes this ongoing pain to having to lay on his back with constant pressure on the area. He denies any neck pain. He is not really sure if he lost consciousness or not. He states he has an abiding sense of vertigo, which is worse with sitting up. He denies any chest pain or shortness of breath. No rib pain or spine pain. No hip or pelvis pain. No pain in his extremities. No other complaints at this time. Review of Systems Ten Systems: 10 systems reviewed and negative Constitutional: reports: Reviewed and negative Eyes: reports: Reviewed and negative Ears: reports: Reviewed and negative Nose: reports: Reviewed and negative Throat: reports: Reviewed and negative Cardiac: reports: Reviewed and negative Respiratory: reports: Reviewed and negative GI: reports: Reviewed and negative : reports: Reviewed and negative Skin: reports: Reviewed and negative Musculoskeletal: reports: Reviewed and negative Neurologic: reports: Syncope (Possible), Headache, Head injury Psychiatric: reports: Reviewed and negative Endocrine: reports: Reviewed and negative Immunocompromised: reports: Reviewed and negative PD PAST MEDICAL HISTORY - Past Medical History Cardiovascular: Coronary artery disease, Atrial fibrillation - Past Surgical History Past Surgical History: Yes Cardiovascular: Pacemaker, AICD - Present Medications Home Medications: Ambulatory Orders Medication Instructions Recorded Confirmed Magnesium Oxide [Mag Ox] 400 mg PO BID 01/30/14 12/14/21 Pantoprazole Sodium 40 mg PO ONCE 01/30/14 12/14/21 Warfarin [Coumadin] 2.5 - 5 mg PO DAILY 01/30/14 12/14/21 Fexofenadine [Valorie] 60 mg PO BID 12/09/21 12/14/21 Furosemide [Lasix] 1.5 tab PO DAILY 12/09/21 12/14/21 Levothyroxine [Synthroid] 125 mcg PO QDAC 12/09/21 12/14/21 Potassium Chloride [Klor-Con 10] 10 meq PO DAILY 12/09/21 12/14/21 Pravastatin [Pravachol] 40 mg PO DAILY PM 12/09/21 12/14/21 Vit C/E/Zn/Coppr/Lutein/Zeaxan 1 each PO DAILY 12/09/21 12/09/21 [Preservision Areds 2 Chew Tab] Sotalol [Betapace] 160 mg PO BID #60 tablet 12/10/21 12/14/21 Thiamine [Vitamin B-1] 100 mg PO DAILY tablet 12/10/21 12/14/21 - Allergies Allergies/Adverse Reactions: Allergies Allergy/AdvReac Type Severity Reaction Status Date / Time No Known Drug Allergies Allergy Verified 12/14/21 10:55 - Social History Does the pt smoke?: No Smoking Status: Never smoker Does the pt drink ETOH?: Yes Does the pt have substance abuse?: No - Immunizations Immunizations are current?: Yes - POLST Patient has POLST: Yes PD ED PE NORMAL - Vitals Vital signs reviewed: Yes - General General: Alert and oriented X 3, No acute distress, Well developed/nourished, Other (Patient is able to speak and give history without difficulty.) - HEENT HEENT: PERRL, Other (Very large, older appearing hematoma encompassing most of the patient's occipital scalp and extending to the right parietal and posterior temporal areas of the scalp, as well. No palpable bony deformity.) - Neck Neck: Supple, no meningeal sign, No bony TTP - Cardiac Cardiac: RRR, No murmur, Strong equal pulses - Respiratory Respiratory: No respiratory distress, Clear bilaterally - Abdomen Abdomen: Soft, Non tender, Non distended - Back Back: No spinal TTP - Derm Derm: Normal color, Warm and dry, No rash - Extremities Extremities: No deformity, No tenderness to palpate, Normal ROM s pain, No edema, Other (No tenderness or instability of pelvis.) - Neuro Neuro: Alert and oriented X 3, customer care team coach 2-12 intact, No motor deficit, No sensory deficit, Normal speech Eye Opening: Spontaneous Motor: Obeys Commands Verbal: Oriented GCS Score: 15 - Psych Psych: Normal mood, Normal affect Results - Vitals Vitals: Oxygen O2 Source Room air - Labs Labs: Laboratory Tests 12/14/21 12/14/21 12/14/21 11:04 11:04 11:04 WBC 3.7 L RBC 3.70 L Hgb 12.3 L Hct 36.9 L MCV 99.7 H MCH 33.2 H MCHC 33.3 RDW 12.8 Plt Count 137 MPV 10.2 Neut # (Auto) 1.9 Lymph # (Auto) 0.8 L [place] # (Auto) 0.6 Eos # (Auto) 0.3 Baso # (Auto) 0.1 Absolute Nucleated RBC 0.00 Nucleated RBC % 0.0 PT 21.3 H INR 1.9 H Sodium 137 Potassium 3.8 Chloride 99 L Carbon Dioxide 26 Anion Gap 12.0 BUN 34 H Creatinine 1.3 H Estimated GFR (MDRD) 52 L Glucose 141 H Calcium 9.1 Total Bilirubin 1.5 H AST 18 ALT 16 Alkaline Phosphatase 46 Total Protein 6.8 Albumin 3.3 Globulin 3.5 Albumin/Globulin Ratio 0.9 L Lipase 49 - Rads (name of study) CT head Radiology: Final report received, EMP read indepedently, See rad report (thin subdural CSF hygroma vs atrophy) CT c-spine Radiology: Final report received, EMP read indepedently, See rad report (nad) PD MEDICAL DECISION MAKING - ED course Complexity details: reviewed old records, reviewed results, re-evaluated patient, considered differential, d/w patient ED course: The patient was worked up with labs, EKG, and CT scan of the head and neck. He was given a liter of 0.9 normal saline. Work-up showed mild anemia. CT showed a possible, thin hygroma, which could also be attributed to CSF filling an atrophied space, but was otherwise unremarkable. I discussed this finding with pt and his family, and communicated that the recommendation is to re-image in the near future. I have given them a copy of the report, to take to the upcoming appointment with pt's PCP. Pt was found to be feeling better on re- evaluation, and was deemed stable for d/c. We have discussed fall prevention at home, as well as the usual indications for return. Departure - Departure Disposition: 01 Home, Self Care Clinical Impression: Dizziness, Fall from ground level Concussion Qualifiers: Encounter type: initial encounter Loss of consciousness presence/duration: with LOC of unspecified duration Qualified Code(s): S06.0X9A - Concussion with loss of consciousness of unspecified duration, initial encounter Condition: Stable Instructions: Falls Prevent Safe Cane Walker, ED Dizziness UKO, ED Head Injury Closed Comments: Overall, the tests look quite good. EKG shows that your pacemaker is functioning appropriately and you have a good blood pressure and heart rate. Your laboratory studies show very slight anemia but nothing that should be causing you any symptoms. Your head CT shows what appears to be a very small, thin fluid collection outside of the brain on the left side, which could just be normal cerebrospinal fluid that is showing up differently because of the nuances of positioning, or it could be some extra fluid from previous injury. There is no evidence of acute bleeding, and there is no pressure on the brain or shifting of the brain matter. The recommendation for this is to have a repeat CT scan within the next several weeks to see how this is doing. Your primary doctor can order this. Given that you have already had head injury in the last week, it is most likely that you have some dizziness that is ongoing, related to that incident, as you almost certainly sustained some degree of concussion at that time. While a concussion generally gets better on its own, it can cause a person to feel a bit dizzy or off balance. Sometimes this can contribute to an increased fall risk with normal movements. As such, it is important that you have a walker with you when you are up and about, and have somebody nearby in case you lose your jitendra ce. You should also try to get as much rest as possible over the next week and drink plenty of fluids. Please call and make an appointment to follow-up with your primary doctor as soon as possible. Discharge Date/Time: 12/14/21 13:30
[2021-12-14 11:08] LABS: BASOPHILS # (AUTO) 0.1 10^3/uL (0.0-0.1); BASOPHILS % (AUTO) 1.6 %; EOSINOPHILS # (AUTO) 0.3 10^3/uL (0.0-0.7); HCT - HEMATOCRIT 36.9 % (42.0-52.0); HGB - HEMOGLOBIN 12.3 g/dL (14.0-18.0); LYMPHOCYTES # (AUTO) 0.8 10^3/uL (1.5-3.5); LYMPHOCYTES % (AUTO) 22.6 %; MEAN CORPUSCULAR HEMOGLOBIN 33.2 pg (27.0-31.0); MEAN CORPUSCULAR HGB CONC 33.3 g/dL (32.0-36.0); MEAN CORPUSCULAR VOLUME 99.7 fL (80.0-94.0); MEAN PLATELET VOLUME 10.2 fL (7.4-11.4); MONOCYTES # (AUTO) 0.6 10^3/uL (0.0-1.0); MONOCYTES % (AUTO) 15.2 %; NEUTROPHILS # (AUTO) 1.9 10^3/uL (1.5-6.6); NEUTROPHILS % (AUTO) 50.5 %; PLT - PLATELET COUNT 137 10^3/uL (130-450); RED CELL DISTRIBUTION WIDTH 12.8 % (12.0-15.0); WHITE BLOOD COUNT 3.7 x10^3/uL (4.8-10.8)
[2021-12-14 11:15] LABS: INR 1.9 (0.8-1.2); PT - PROTHROMBIN TIME 21.3 secs (9.9-12.6)
[2021-12-14 11:21] LABS: ALBUMIN 3.3 g/dL (3.2-5.5); ALBUMIN/GLOBULIN RATIO 0.9 (1.0-2.2); BILIRUBIN,TOTAL 1.5 mg/dL (0.2-1.0); CALCIUM 9.1 mg/dL (8.5-10.3); CREATININE 1.3 mg/dL (0.6-1.2); POTASSIUM 3.8 mmol/L (3.5-5.0); TOTAL PROTEIN 6.8 g/dL (6.7-8.2)
--- NOTE | 2021-12-14 11:58 | CT Report ---
PROCEDURE: CT brain without contrast INDICATIONS: fall/head injury/anticoagulation TECHNIQUE: Noncontrast 4.5 mm thick angled axial sections acquired from the foramen magnum to the vertex. For r adiation dose reduction, the following was used: automated exposure control, adjustment of mA and/or kV according to patient size. COMPARISON: December 09, 2021 FINDINGS: Image quality: Excellent. CSF spaces: Basal cisterns are patent. There is now a thin left-sided CSF density subdural fluid col lection measuring 4.5 mm in thickness, new from prior exam. No midline shift. Ventricles are normal in size and shape. Brain: No midline shift. No intracranial masses or hemorrhage. Hall-white matter interface is norm al. Moderate atrophy and multifocal white matter chronic ischemic change noted. Atherosclerotic vasc ular calcification noted in the cavernous segments of both internal carotid arteries as well as the i ntradural vertebral arteries. Skull and face: Large right occipital/parietal scalp hematoma measures up to now measures up to 2.2 c m in thickness, previously 1.2 cm. Underlying skull intact Sinuses: Visualized sinuses and mastoids are clear. IMPRESSION: 1. Thin left-sided CSF-density extra-axial fluid collection, new from the prior. Differential would b e small subdural hygroma versus cerebral atrophy. No midline shift or significant mass effect. Consid er short-term interval follow-up 2. No intracranial hemorrhageOr skull fracture. 3. Right sided scalp hematoma is slightly larger than the prior exam. Reviewed by: Ronan Smith MD on 12/14/2021 10:57 AM NITO Approved by: Ronan Smith MD on 12/14/2021 10:57 AM NITO Station ID: [id number]
--- NOTE | 2021-12-14 12:06 | CT Report ---
PROCEDURE: CT cervical spine without contrast INDICATIONS: fall/head injury/pain TECHNIQUE: Noncontrast 3 mm thick sections acquired from the skull base to the T4 level. Sagittal and coronal r eformats were then constructed. For radiation dose reduction, the following was used: automated exp osure control, adjustment of mA and/or kV according to patient size. COMPARISON: None. FINDINGS: Image quality: Excellent. Bones: No fractures or dislocations. Visualized superior ribs are intact. Degenerative disc diseas e and arthropathy particularly in the mid to lower cervical spine results in moderate to severe right foraminal stenosis at C3-4, C5-6 and bilateral moderate foraminal stenosis at C6-7 and C7-T1 Incidental mandibular periodontal disease. Soft tissues: Prevertebral soft tissues are normal in thickness. No paravertebral hematomas. No ap ical pneumothoraces. IMPRESSION: 1. No evidence of fracture or malalignment. 2. Multilevel degenerative disc disease and arthropathy results in predominantly right foraminal sten osis Reviewed by: Ronan Smith MD on 12/14/2021 11:05 AM NITO Approved by: Ronan Smith MD on 12/14/2021 11:05 AM NITO Station ID: [id number]
[2021-12-14] MEDS ORDERED: ONDANSETRON 4 MG/2 ML VIAL IVP STA (12:33)
[2021-12-14] MEDS ORDERED: BACITRACIN ZINC OINT 1 PACKET TOP STA (12:33)
[2021-12-14] MEDS ORDERED: HYDROmorphone 0.5 MG/0.5 ML SYRINGE IVP STA (12:44)
[2021-12-14 12:57] VITALS: BP 120/107
== END 2021-12-14 13:30 | disposition home or self-care (01) ==
LOC: EDUNIT# → ED 10:49
DX: S06.0X9A Concussion with loss of consciousness of unspecified duration, initial encounter (principal); W18.30XA Fall on same level, unspecified, initial encounter; I48.91 Unspecified atrial fibrillation; Z79.01 Long term (current) use of anticoagulants; Z95.0 Presence of cardiac pacemaker
CPT/HCPCS: 36415; 70450; 72125; 80053; 83690; 85025; 85610; 93005; 96374; 96375; 99282; 99284; A9270; J1170

== ENCOUNTER 2022-12-09 11:04 | Outpatient (CLI) | payer MEDICARE, BC | END 2022-12-09 11:05 | disposition home or self-care (01) | LOC: RT 11:04 | PROVIDERS: ATTEND Student in an Organized Health Care Education/Training Program | DX: Z01.810 Encounter for preprocedural cardiovascular examination (principal); K40.90 Unilateral inguinal hernia, without obstruction or gangrene, not specified as recurrent | CPT/HCPCS: 93005 ==

== ENCOUNTER 2023-03-27 12:22 | Outpatient (CLI) | payer MEDICARE, BC | END 2023-03-27 12:23 | disposition short-term general hospital (02) | LOC: EMS 12:22 | DX: M54.50 Low back pain, unspecified (principal); R11.2 Nausea with vomiting, unspecified; R41.0 Disorientation, unspecified; W18.30XA Fall on same level, unspecified, initial encounter; Y92.009 Unspecified place in unspecified non-institutional (private) residence as the place of occurrence of the external cause | CPT/HCPCS: A0425; A0429 ==

== ENCOUNTER 2023-04-26 10:52 | Outpatient (CLI) | payer MEDICARE, BC | END 2023-04-26 23:59 | disposition critical access hospital (66) | LOC: EMS 10:52 | DX: I95.9 Hypotension, unspecified (principal); R42 Dizziness and giddiness; M25.551 Pain in right hip; R19.7 Diarrhea, unspecified; R63.0 Anorexia | CPT/HCPCS: A0425; A0427 ==

== ENCOUNTER 2023-04-26 11:19 | Emergency (ER) | payer MEDICARE, BC ==
[2023-04-26 11:44] VITALS: BP 104/55; O2SAT 96
[2023-04-26] MEDS ORDERED: SODIUM CHLORIDE 0.9% 1,000 ML IV STA (11:50)
--- NOTE | 2023-04-26 11:52 | ED Physician Documentation ---
History of Present Illness - Stated complaint Stated Complaint: Dizziness/ R Hip Pain - Chief complaint Chief Complaint: Neuro - History obtained from History obtained from: Patient, Family, EMS - History of Present Illness Pain level max: 0 Pain level now: 0 - Additonal information Additional information: 87-year-old male presents to the emergency department stating that he has had a right hip pain for 1 month status post a fall. He had CT scans performed of his head, neck, back and pelvis. He reportedly had 2 spinal compression fractures. He is not complaining of any back pain. Family states that the pain is worse with walking, better with rest. He tried tramadol and oxycodone but could not tolerate either medication due to mental side effects. This morning the home health nurse came and took his blood pressure and noted it to be low. They called his doctor who recommended he call EMS for low blood pressure. EMS gave him 200 mL of fluid and brought him here. Patient has a history of cardiomyopathy, CHF, ICD. confirms that his normal systolic blood pressure is between 85 and 95. Occasionally will go as high as 102 systolic. He is not lightheaded, dizzy or complained of any other symptoms related to his chronic hypotension. No other falls. No headache. Review of Systems Constitutional: denies: Fever, Chills Cardiac: denies: Chest pain / pressure, Palpitations Respiratory: denies: Cough GI: denies: Nausea, Vomiting, Diarrhea Skin: denies: Rash Musculoskeletal: denies: Neck pain, Back pain Neurologic: denies: Focal weakness, Numbness, Confused, Altered mental status, Headache PD PAST MEDICAL HISTORY - Past Medical History Cardiovascular: Coronary artery disease, Atrial fibrillation - Past Surgical History Past Surgical History: Yes Cardiovascular: Pacemaker, AICD - Present Medications Home Medications: Ambulatory Orders Medication Instructions Recorded Confirmed Magnesium Oxide [Mag Ox] 400 mg PO BID 01/30/14 12/14/21 Pantoprazole Sodium 40 mg PO ONCE 01/30/14 12/14/21 Warfarin [Coumadin] 2.5 - 5 mg PO DAILY 01/30/14 12/14/21 Fexofenadine [Valorie] 60 mg PO BID 12/09/21 12/14/21 Furosemide [Lasix] 1.5 tab PO DAILY 12/09/21 12/14/21 Levothyroxine [Synthroid] 125 mcg PO QDAC 12/09/21 12/14/21 Potassium Chloride [Klor-Con 10] 10 meq PO DAILY 12/09/21 12/14/21 Pravastatin [Pravachol] 40 mg PO DAILY PM 12/09/21 12/14/21 Vit C/E/Zn/Coppr/Lutein/Zeaxan 1 each PO DAILY 12/09/21 12/09/21 [Preservision Areds 2 Chew Tab] Sotalol [Betapace] 160 mg PO BID #60 tablet 12/10/21 12/14/21 Thiamine [Vitamin B-1] 100 mg PO DAILY tablet 12/10/21 12/14/21 Meloxicam [Mobic] 7.5 mg PO BID PRN #20 tablet 04/26/23 - Allergies Allergies/Adverse Reactions: Allergies Allergy/AdvReac Type Severity Reaction Status Date / Time No Known Drug Allergies Allergy Verified 04/26/23 11:35 - Social History Does the pt smoke?: No Smoking Status: Never smoker Does the pt drink ETOH?: Yes Does the pt have substance abuse?: No - Immunizations Immunizations are current?: Yes - POLST Patient has POLST: Yes PD ED PE NORMAL - Vitals Vital signs reviewed: Yes - General General: Alert and oriented X 3, No acute distress - HEENT HEENT: PERRL, Moist mucous membranes - Neck Neck: Supple, no meningeal sign - Cardiac Cardiac: RRR, Strong equal pulses - Respiratory Respiratory: No respiratory distress, Clear bilaterally - Abdomen Abdomen: Soft, Non tender, Non distended - Back Back: No CVA TTP, No spinal TTP - Derm Derm: Warm and dry, No rash - Extremities Extremities: No edema, No calf tenderness / cord, Other (Passive range of motion of the right hip without any pain. No bruising or deformity. Mild tenderness over the greater trochanter. Neurovascular intact. Normal examination remainder right lower extremity) - Neuro Neuro: Alert and oriented X 3 - Psych Psych: Normal mood, Normal affect Results - Vitals Vitals: Vital Signs - 24 hr 04/26/23 11:29 Temperature 36.0 C L Heart Rate 76 Respiratory 23 Rate Blood Pressure 104/55 L O2 Saturation 96 Oxygen O2 Source Room air - EKG (time done) 1125 EKG releavant findings:: EKG personally interpreted by author of this note. Relevant findings are: Rate: Rate (enter#) (75) Rhythm: Paced - Labs Labs: Laboratory Tests 04/26/23 04/26/23 04/26/23 12:08 12:08 12:50 WBC 5.0 RBC 3.99 L Hgb 13.5 L Hct 40.2 L MCV 100.8 H MCH 33.8 H MCHC 33.6 RDW 12.8 Plt Count 148 MPV 9.4 Neut # (Auto) 2.9 Lymph # (Auto) 0.9 L Pershing # (Auto) 0.8 Eos # (Auto) 0.3 Baso # (Auto) 0.0 Absolute Nucleated RBC 0.00 Nucleated RBC % 0.0 Sodium 141 Potassium 4.0 Chloride 104 Carbon Dioxide 33 H Anion Gap 4.0 L BUN 27 H Creatinine 1.0 Estimated GFR (MDRD) 71 L Glucose 125 H Calcium 9.3 Total Bilirubin 1.0 AST 17 ALT 16 Alkaline Phosphatase 104 Total Protein 6.8 Albumin 3.6 Globulin 3.2 Albumin/Globulin Ratio 1.1 Lipase 50 Urine Color YELLOW Urine Clarity CLEAR Urine pH 6.0 Ur Specific [place] 1.015 Urine Protein NEGATIVE Urine Glucose (UA) NEGATIVE Urine Ketones NEGATIVE Urine Occult Blood NEGATIVE Urine Nitrite NEGATIVE Urine Bilirubin NEGATIVE Urine Urobilinogen 0.2 (NORMAL) Ur Leukocyte Esterase NEGATIVE Ur Microscopic Review NOT INDICATED Urine Culture Comments NOT INDICATED - Rads (name of study) Right hip CT Relevant Findings:: Final report received, See rad report PD Medical Decision Making - ED course Complexity details: reviewed results, re-evaluated patient, considered differential, d/w patient, d/w family ED course: No acute findings on CT scan. No significant lab abnormalities. Blood pressure is at his normal baseline. He is no longer on any blood thinners. We will trial the patient on meloxicam to see if this helps his pain. Recommend he follow-up with his PCP for further care use a walker to help him ambulate at home. Patient and family counseled regarding signs and symptoms for which I believe and urgent re-evaluation would be necessary. Patient with good understanding of and agreement to plan and is comfortable going home at this time This document was made in part using voice recognition software. While efforts are made to proofread this document, sound alike and grammatical errors may occur. Departure - Departure Disposition: 01 Home, Self Care Clinical Impression: Hip arthritis Hypotension Qualifiers: Hypotension type: unspecified hypotension type Qualified Code(s): I95.9 - Hypotension, unspecified Condition: Good Instructions: ED Degenerative Joint Disease Follow-Up: ARIELA FARMER MD [Primary Care Provider] - Prescriptions: Meloxicam [Mobic] 7.5 mg PO BID PRN #20 tablet PRN Reason: Pain Comments: Please make sure you are drinking plenty of water at home. Please follow-up with your doctor for further care. Your CT of your hip does not show any acute traumatic abnormalities. You do have arthritis in the hip. We will trial you on meloxicam to see if this helps your pain. Your prescription was sent to the [facility] pharmacy. PROCEDURE: LOWER EXTREMITY WO - RT INDICATIONS: R hip pain x 1month TECHNIQUE: Noncontrast 3-mm axial sections acquired from the distal tibial shaft to the talar dome, with coronal and sagittal reformats. For radiation dose reduction, the following was used: automated exposure control, adjustment of mA and/or kV according to patient size. COMPARISON: None. FINDINGS: Image quality: Excellent. Bones: Degenerative subchondral cyst noted in the right femoral head. Moderate hip joint space narrowing present. No evidence of fracture involving the proximal right femur or pelvic ring appears to total left hip prosthesis in good position. Degenerative disc disease and arthropathy present in the lower lumbar spine Soft tissues: Atherosclerotic vascular calcification noted without aneurysm. Periumbilical: Right inguinal hernia present without aneurysm. Impression: Arthritic and degenerative changes without evidence of fracture or hardware failure Forms: PCP List Discharge Date/Time: 04/26/23 14:02
[2023-04-26] MEDS ORDERED: SODIUM CHLORIDE 0.9% 500 ML IV STA (12:10)
[2023-04-26 12:14] LABS: BASOPHILS % (AUTO) 0.8 %; EOSINOPHILS # (AUTO) 0.3 10^3/uL (0.0-0.7); EOSINOPHILS % (AUTO) 6.5 %; HCT - HEMATOCRIT 40.2 % (42.0-52.0); HGB - HEMOGLOBIN 13.5 g/dL (14.0-18.0); LYMPHOCYTES # (AUTO) 0.9 10^3/uL (1.5-3.5); LYMPHOCYTES % (AUTO) 18.8 %; MEAN CORPUSCULAR HEMOGLOBIN 33.8 pg (27.0-31.0); MEAN CORPUSCULAR HGB CONC 33.6 g/dL (32.0-36.0); MEAN CORPUSCULAR VOLUME 100.8 fL (80.0-94.0); MEAN PLATELET VOLUME 9.4 fL (7.4-11.4); MONOCYTES # (AUTO) 0.8 10^3/uL (0.0-1.0); MONOCYTES % (AUTO) 15.7 %; NEUTROPHILS # (AUTO) 2.9 10^3/uL (1.5-6.6); NEUTROPHILS % (AUTO) 57.8 %; PLT - PLATELET COUNT 148 10^3/uL (130-450); RED BLOOD COUNT 3.99 10^6/uL (4.70-6.10); RED CELL DISTRIBUTION WIDTH 12.8 % (12.0-15.0)
[2023-04-26 12:28] LABS: ALBUMIN 3.6 g/dL (3.2-5.5); ALBUMIN/GLOBULIN RATIO 1.1 (1.0-2.2); CALCIUM 9.3 mg/dL (8.5-10.3); TOTAL PROTEIN 6.8 g/dL (6.4-8.9)
[2023-04-26 12:58] LABS: BILIRUBIN,URINE NEGATIVE (NEGATIVE); GLUCOSE, URINE (UA) NEGATIVE (NEGATIVE); KETONES,URINE (UA) NEGATIVE (NEGATIVE); LEUKOCYTE ESTERASE, URINE NEGATIVE (NEGATIVE); NITRITE,URINE NEGATIVE (NEGATIVE); OCCULT BLOOD,URINE NEGATIVE (NEGATIVE); PROTEIN,URINE NEGATIVE (NEGATIVE); UROBILINOGEN,URINE 0.2 (NORMAL) E.U./dL (NORMAL)
[2023-04-26 13:06] LABS: CLARITY,URINE CLEAR (CLEAR)
--- NOTE | 2023-04-26 13:25 | CT Report ---
PROCEDURE: LOWER EXTREMITY WO - RT INDICATIONS: R hip pain x 1month TECHNIQUE: Noncontrast 3-mm axial sections acquired from the distal tibial shaft to the talar dome, with coronal and sagittal reformats. For radiation dose reduction, the following was used: automated exposure c ontrol, adjustment of mA and/or kV according to patient size. COMPARISON: None. FINDINGS: Image quality: Excellent. Bones: Degenerative subchondral cyst noted in the right femoral head. Moderate hip joint space narro wing present. No evidence of fracture involving the proximal right femur or pelvic ring appears to to tony left hip prosthesis in good position. Degenerative disc disease and arthropathy present in the lo wer lumbar spine Soft tissues: Atherosclerotic vascular calcification noted without aneurysm. Periumbilical: Right ing uinal hernia present without aneurysm. Impression: Arthritic and degenerative changes without evidence of fracture or hardware failure Reviewed by: Ronan Smith MD on 04/26/2023 12:24 PM [facility]DT Approved by: Ronan Smith MD on 04/26/2023 12:24 PM AKDT Station ID: [id number]
[2023-04-26] MEDS ORDERED: MELOXICAM 7.5 MG TABLET PO STA (13:41)
== END 2023-04-26 14:02 | disposition home or self-care (01) ==
LOC: EDUNIT# → ED 11:19
DX: M16.11 Unilateral primary osteoarthritis, right hip (principal); I95.89 Other hypotension
CPT/HCPCS: 36415; 73700; 80053; 81003; 83690; 85025; 93005; 99284; A9270; 81001; 87086

== ENCOUNTER 2023-08-22 12:36 | Outpatient (CLI) | payer BC, MEDICARE | END 2023-08-22 12:37 | disposition EMS.NT | LOC: EMS 12:36 | DX: Z03.89 Encounter for observation for other suspected diseases and conditions ruled out (principal) ==